=== PATIENT | male | born 1960 | race Caucasian/White ===

== ENCOUNTER 2019-07-09 14:20 | Emergency (ER) | payer OTHER ==
[~2019-07-09] VITALS: Ht 175.3 cm; Wt 145.2 kg
[~2019-07-09 14:20] MED LIST: ADVAIR; AMLODIPINE-BEN1 EAC3 PO; AVELOX 400 MG400 MG PO; Advair Hfa PO; CEFDINIR300 MG; COLACE100 MG PO; DEEP SEA NASAL44 M1 IH; FOLIC ACID1 MG PO; HUMIRA20 MG/0.4; HYDROXYCHLOROQ200 M1 PO; IRON325 PO; METHOTREXATE; MUCINEX TA600 MG/TA1 PO; PREDNISONE; PREDNISONE 20 M20 M1 PO; RHEUMATREX PO; SENNA PO; SIMVASTATIN40 MG PO; SINGULAIR 10 MG10 M1 PO; XOLAIR150 MG SUBQ; ZOCOR 20 MG TAB20 M1; orencia
[2019-07-09] MEDS ORDERED: PREDNISONE 10 M10 M1 PO (16:23)
[2019-07-09] MEDS ORDERED: CYCLOBENZAPRINE5 MG PO (16:24)
[2019-07-09] MEDS ORDERED: NORCO 10-325 T1 EACH PO (16:24)
[2019-07-09 16:53] VITALS: BP 140/65
[2019-07-12] MEDS ORDERED: ADVAIR HFA 230M12 GM INH (15:52)
[2019-07-12] MEDS ORDERED: METHOTREXATE 22.5 MG PO (15:56)
[2019-07-12] MEDS ORDERED: PREDNISONE 10 M10 MG PO (15:59)
[2019-07-12] MEDS ORDERED: NORCO 10-325 T1 EACH PO (16:01)
[2019-07-12] MEDS ORDERED: CYCLOBENZAPRINE5 MG PO (16:01)
[2019-07-12] MEDS ORDERED: ORENCIA 25250 MG/VIA IV (16:03)
[2019-07-12] MEDS ORDERED: PROAIR HFA8.5 GM INH (16:05)
== END 2019-07-09 16:53 | disposition home or self-care (01) ==
LOC: ER 14:20
DX: M51.26 Other intervertebral disc displacement, lumbar region (principal); I10 Essential (primary) hypertension; J44.9 Chronic obstructive pulmonary disease, unspecified; E78.5 Hyperlipidemia, unspecified; M06.9 Rheumatoid arthritis, unspecified; Z88.8 Allergy status to other drugs, medicaments and biological substances; Z88.6 Allergy status to analgesic agent; Z88.0 Allergy status to penicillin

== ENCOUNTER → 2019-07-19 | Day surgery (SDC) | payer OTHER ==
[~2019-07-19] VITALS: Ht 172.7 cm; Wt 147.4 kg
[~2019-07-19] MED LIST changes: +ADVAIR HFA 230M12 GM INH; +CYCLOBENZAPRINE5 MG PO; +FLEXERIL PO; +METHOTREXATE 22.5 MG PO; +NORCO 10-325 T1 EACH PO; +ORENCIA 25250 MG/VIA IV; +PERCOCET PO; +PREDNISONE 10 M10 M1 PO; +PREDNISONE 10 M10 MG PO; +PROAIR HFA8.5 GM INH
[2019-07-19 10:36] LABS: HEMATOCRIT 51.6 % (42.0-52.0); HEMOGLOBIN 17.8 gm/dL (14.0-18.0)
[2019-07-19 10:45] LABS: CALCIUM 10.2 mg/dL (8.5-10.1); CREATININE 1.2 mg/dL (0.7-1.3); POTASSIUM 4.2 mmol/L (3.5-5.1)
[2019-07-19 11:05] VITALS: BP 170/99
[2019-07-19 13:45] VITALS: BP 170/99
--- NOTE | 2019-07-19 16:01 | EKG ---
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: DOV : 1960 Requested By: Joo Jay Order Number: [id number] MD: Philip Julien Measurements Intervals Morven Rate: 98 P: 31 IN: 150 QRS: -63 QRSD: 98 T: 60 QT: 345 QTc: 441 Interpretive Statements Sinus rhythm Probable left atrial enlargement Left anterior fascicular block Borderline low voltage, extremity leads Abnormal R-wave progression, late transition No previous ECG available for comparison Electronically Signed On 07-19-2019 16:01:14 CDT by Philip Julien [email or web address] ��������������������������������������������� <ELECTRONICALLY SIGNED> ���������������������������������������� By: Philip Julien MD ��������������������������������������������� 07/19/19 1601 1038 1038 Philip Julien MD /EPI
--- NOTE | 2019-07-21 12:49 | O ---
[facility] [place] [address] [place] [address] OPERATIVE REPORT Name: NGUYEN HUTCHINSON Room #: REG [facility].#: [id number] Admission: 07/19/19 ������������������ Attend Phys: Joo Jay MD Discharge: ������������������ Date of : 60 Report #: [id number] THIS REPORT FOR: //name// CC: Melquiades Rucker DATE OF SERVICE: 07/19/2019 PREOPERATIVE DIAGNOSES: Large lipoma, midline, measuring 10-12 cm; a 3 cm lipoma in the right lateral chest and another 3 cm lipoma, right hip area. POSTOPERATIVE DIAGNOSES: Large lipoma, midline, measuring 10-12 cm; a 3 cm lipoma in the right lateral chest and another 3 cm lipoma, right hip area. PROCEDURE PERFORMED: Excision of lipoma as described above. COMPLICATIONS: None. ESTIMATED BLOOD LOSS: 10 mL. SURGEON: Joo Jay MD. ANESTHESIA: IV sedation, local 0.25% Marcaine. PROCEDURE NOTE: With the patient under IV sedation, the back and the lipoma of the chest and right hip area was prepped and draped in sterile fashion. The patient is in the left side down position laterally. Timeout was performed. Preoperative IV antibiotic was administered. A 0.25% Marcaine was used to anesthetize the skin and subcutaneous tissue. The large lipoma was excised with about a 10 cm incision. After incising through the skin and subcutaneous tissue, the subcutaneous fat was normal under the skin. After opening the superficial fascia, a large lipoma was found. The lipoma was quite spherical, measuring about 12 cm. This was also quite heavy. After dissecting the lipoma free from the overlying fascia, this lipoma was actually able to be dissected all pretty well bluntly. The edges were cauterized. There was a pretty good size space left. This was pretty well right in the midline and pressing on both lateral paraspinal muscles. Hemostasis obtained with cautery. This was then packed with gauze. The two smaller lipomas were then dissected free without difficulty. Each contained a distinct lipoma measuring about 3 cm in diameter. The subcutaneous tissue was closed with 4-0 PDS. Skin was closed with 5-0 PDS on the small lipoma side. A #15 Gene drain was brought out through the large space where the large lipoma was placed in the space where the large lipoma was removed from. This was brought out laterally on the right side. The drain was sutured with 2-0 silk. Irrigation was performed. Hemostasis obtained. Subcutaneous tissue was closed with 3-0 PDS. Skin was closed with 4-[address] [address] OPERATIVE REPORT Name: NGUYEN HUTCHINSON Amaya Room #: REG [facility]#: [id number] Admission: 07/19/19 ������������������ Attend Phys: Joo Jay MD Discharge: ������������������ Date of : 60 Report #: [id number] running subcuticular fashion. Dermabond was applied to all the incisions, 4 x 4, OpSite used for dressing. The patient tolerated the procedure well. ��������������������������������������������� <ELECTRONICALLY SIGNED> ���������������������������������������� By: Joo Jay MD ��������������������������������������������� 07/21/19 1249 19 48 Joo Jay MD /nt
--- NOTE | 2019-07-21 17:06 | PATH ---
[facility] [place] [address] PATHOLOGY RPT PROCEDURE Name: NGUYEN MONTES DE OCA Room #: REG [facility].#: [id number] ������������������ Admission: 07/19/19 ������������������ Date of : 60 Discharge: Report #: [id number] Path Case #: [id number] [facility] Accession Number: [id number] . 01 Material submitted: . PART A: back - MID BACK LIPOMA. Modifiers: mid PART B: flank - RIGHT UPPER FLANK LIPOMA. Modifiers: right, upper PART C: hip - RIGHT HIP LIPOMA. Modifiers: right . 01 Clinical history: . Lipoma . 02 Diagnosis: A. Mature adipose tissue, mid back lipoma, excision: - Compatible with a lipoma associated with fat necrosis and dystrophic calcifications. . B. Mature adipose tissue, right upper flank lipoma, resection: - Compatible with a lipoma. . C. Mature adipose tissue, right hip lipoma, excision: - Compatible with a lipoma. (IUV:pit; 07/21/2019) QTP/07/21/2019 . 02 Electronically signed: . Hina Alcantar MD, Pathologist NPI- [id number] . 01 Gross description: . A. The specimen is received in formalin, labeled "Nguyen Montes De Oca, middle back lipoma". Received is a segment of yellow-huang lobulated tissue measuring 10.4 x 9.8 x 6.8 cm in greatest dimensions. Sectioning reveals bright yellow, lobulated cut surfaces throughout with a focus of pale huang lobulated tissue measuring 1.2 cm in maximum dimensions. The specimen is submitted representatively in cassette A1 and A2, with the entire pale huang areas submitted in cassette A1. . B. The specimen is received in formalin, labeled "Nguyen Montes De Oca, right upper flank lipoma". Received is a segment of yellow-huang lobulated tissue measuring 4.6 x 3.6 x 1.9 cm in greatest dimensions. Sectioning reveals bright yellow cut surfaces with no grossly distinct nodules or lesions. The specimen is submitted representatively in cassette B1. . C. The specimen is received in formalin, labeled "Nguyen Montes De Oca, right hip lipoma". Received are multiple segments of yellow-huang lobulated tissue measuring 6.1 x 5.3 x 2.6 cm in aggregate dimensions. Sectioning [address] [address] PATHOLOGY RPT PROCEDURE Name: NGUYEN MONTES DE OCA Room #: REG [facility] [place] M..#: [id number] ������������������ Admission: 07/19/19 ������������������ Date of : 60 Discharge: Report #: [id number] Path Case #: [id number] reveals bright yellow cut surfaces with no grossly distinct nodules or lesions. The specimen is submitted representatively in cassette C1. (CAA; 07/20/2019) QAC/QAC . 02 Pathologist provided ICD-10: D17.1, D17.23 . 02 CPT . 094026, 806588, 805207 Specimen Comment: A courtesy copy of this report has been sent to Specimen Comment: [phone], . Specimen Comment: Report sent to / DR GONZALES Performed at: 01 [facility] [address] [facility] [address], [place] [id number] MD Nils Valdez MD Phone: [phone] Performed at: [address] [id number] MD Hina Alcantar MD Phone: [phone]
== END | disposition home or self-care (01) ==
LOC: OR
PROVIDERS: Surgery
DX: D17.1 Benign lipomatous neoplasm of skin and subcutaneous tissue of trunk (principal); D17.23 Benign lipomatous neoplasm of skin and subcutaneous tissue of right leg; I10 Essential (primary) hypertension; J45.909 Unspecified asthma, uncomplicated; G47.30 Sleep apnea, unspecified; M06.9 Rheumatoid arthritis, unspecified; Z98.890 Other specified postprocedural states; Z87.891 Personal history of nicotine dependence; Z79.899 Other long term (current) drug therapy; Z88.0 Allergy status to penicillin; Z88.8 Allergy status to other drugs, medicaments and biological substances
CPT/HCPCS: 50010; 50101; 50331; 50386; 50417; 54118; 56524; 56525; 56526; 56527; 62110; 62850; 70005

== ENCOUNTER → 2019-08-16 | Outpatient (CLI) | payer OTHER ==
[~2019-08-16] VITALS: Ht 175.3 cm; Wt 142.0 kg
[~2019-08-16] MED LIST changes: +NABUMETONE 500500 M1 PO; +NEURONTIN 300300 M1 PO
[2019-08-16 14:10] VITALS: BP 183/98
--- NOTE | 2019-08-16 14:28 | NUR ---
Pain Clinic Assessment: 1. History of Osteoarthritis: Right Upper Extremity Left Upper Extremity History of Rheumatoid Arthritis: * GENERALIZED 2. Height: 5 ft. 9 in. 175.3 cm. Weight: 313.0 lb. oz. 141.976 kg. Patient's BMI: 46.2 3. Vital Signs: BP: 183/98 Pulse: 87 Resp: 16 Temp: 02 Sat: 99 ECG Mon: 4. Pain Intensity: 8 5. Fall Risk: Dizziness: N Needs help standing or walking: N Fallen in the last 3 months: N Fall risk comments: 6. Patient on Blood Thinner: None 7. History of Hypertension: Y 8. Opioid Therapy greater than 6 weeks: N Opiate Contract Signed: 9. Risk Assessment Tool Provided: LOW RISK 10. Functional Assessment Tool: 11. Recreational Drug Use: Never Drug Type: Tobacco Use: Never Smoker Tobacco Type: Amount or Packs/day: How Many Years: Alcohol Use: No Frequency: Quant:
--- NOTE | 2019-08-23 07:46 | HPC ---
[facility] [place] [address] [place] [address] PAIN MANAGEMENT CONSULTATION Name: NGUYEN HUTCHINSON Room #: REG [facility]uy#: [id number] Admission: 08/16/19 Attend Phys: Melquiades Barrios DO Discharge: Date of : 60 Report #: [id number] THIS REPORT FOR: //name// CC: Fatmata Barrios DATE OF SERVICE: 08/16/2019 REFERRING PROVIDER: TATIANA Conley CHIEF COMPLAINT: Low back pain, left lower extremity pain with paresthesias. HISTORY OF PRESENT ILLNESS: As you know, the patient is a very pleasant 59-year-old male referred to our service by his primary care team for evaluation for suspected lumbar radiculopathy. The patient indicates the pain began in May 2019 and has progressively worsened. The patient reports that he has had epidural injections in the past done at [facility] in [place] with good efficacy. He denies any new injury or trauma that may have led to symptom reoccurrence. He has undergone recent MRI of the lumbar spine dated 08/05/2019 which shows changes significant enough that the patient was referred to our clinic to discuss options for treatment. He has trialed conservative treatment management, but this has not improved overall pain. The patient indicates today pain is steady; describes the pain as aching, numbness and tingling. Places current pain score at 8/10, daily average at 8/10, worst pain has been is 10/10. The patient states that bending forward, getting up out of a seated position or sitting down from a standing position exacerbates symptoms. Repositioning tends to improve pain. He has been referred to our service to discuss treatment options for suspected lumbar radiculopathy. PAST MEDICAL HISTORY: 1. Rheumatoid arthritis. 2. Intrinsic lung disease. 3. Iron deficiency. 4. Hypertension. 5. Morbid obesity. PAST SURGICAL HISTORY: None. SOCIAL HISTORY: The patient denies tobacco, alcohol, IV or illicit drug use. He is working at [employer]. He has been out of the workforce for nearly 30 days due to ongoing back pain and left lower extremity symptoms. He reports he is not in litigation in regards to pain, but does state he is looking into possible disability benefits. He is unaccompanied at today's visit. [address] [address] PAIN MANAGEMENT CONSULTATION Name: NGUYEN HUTCHINSON Room #: REG [facility]#: [id number] Admission: 08/16/19 Attend Phys: Melquiades Barrios DO Discharge: Date of : 60 Report #: [id number] REVIEW OF SYSTEMS: Positive only for low back pain, left lower extremity pain with paresthesias. All other review of systems negative per 12-point review of systems other than those listed in history of present illness. Pain impact score 22/60 indicating mild interference of daily activities secondary to pain. ALLERGIES: NAPROXEN, PENICILLIN, OXYCODONE, ASPIRIN, GABAPENTIN, CYCLOBENZAPRINE, DIPHENHYDRAMINE. CURRENT MEDICATIONS: Amlodipine/benazepril 5/20 one tab per day, Plaquenil 200 mg 2 tabs p.o. q.a.m., ferrous sulfate 325 mg per day, Xolair 150 mg subcutaneous per week, Advair 230/21 inhaled twice a day, methotrexate 25 mg once a week, Orencia 250 mg intravenous per month. IMAGING: MRI of lumbar spine obtained on 08/05/2019. L1-L2 unremarkable. L2-L3 shows diffuse disk bulge, dnlo-ra-ziaycsik facet and ligamentum flavum hypertrophy. Mild central canal and lateral recess narrowing. There is moderate left neuroforaminal narrowing, thecal sac measuring 9 mm. L3-L4, diffuse disk bulge, lateral annular tear, facet and ligamentum flavum hypertrophy, mild central canal stenosis, measurement of thecal sac 9 mm. L4-L5, diffuse disk bulge, central annular fissure, protrusion measuring 1.5 cm at its base and 0.3 cm in height, minimal facet arthropathy. No central canal or neuroforaminal stenosis. L5-S1, diffuse disk bulge, facet hypertrophy. No central canal or neuroforaminal stenosis, bilateral L5 pars interarticularis fractures. PHYSICAL EXAMINATION: VITAL SIGNS: Blood pressure 183/98, pulse 87, respiratory rate 16 and unlabored. The patient is 99% on room air. Height 5 feet 9 inches tall, weight 313 pounds, BMI calculated 46.2. GENERAL: Well-developed, well-nourished, well-hydrated, class 3, morbidly obese 59-year-old male appearing stated age, pain is rated around 8/10. HEENT: Normocephalic, atraumatic. Pupils equal, round, reactive to light. Extraocular muscles are intact. Sclerae nonicteric without injection. NEUROLOGIC: Cranial nerves 2-12 grossly intact. Speech is fluent. The patient deemed a good historian. LUNGS: Clear. No wheezes, rhonchi, no rales. CARDIOVASCULAR: Regular. No appreciable gallop, no rub. ABDOMEN: Soft, morbidly obese. Normoactive bowel sounds. EXTREMITIES: Show no clubbing, no cyanosis, 1+ nonpitting lower extremity edema noted bilaterally. MUSCULOSKELETAL: Lower extremity strength equal and symmetrical 5/5, intact to light touch from L1 through S2 dermatomes. Seated straight leg raising negative. Supine straight leg raising positive on the left. Aki's test is [facility] [address] [place] [address] PAIN MANAGEMENT CONSULTATION Name: NGUYEN HUTCHINSON Room #: REG [facility]#: [id number] Admission: 08/16/19 Attend Phys: Melquiades Barrios DO Discharge: Date of : 60 Report #: [id number]. Modified Gaenslen's positive for axial low back pain. Ankle clonus negative. Babinski's is negative. Lumbar provocation testing including extension, rotation, lateral flexion all intensify axial back pain, no radicular component. ASSESSMENT: 1. Chronic lumbar radiculopathy. 2. Displacement of lumbar intervertebral disk with radiculopathy. 3. Lumbosacral spondylosis with radiculopathy. 4. Lumbar degeneration. 5. Chronic intractable pain. PLAN: 1. Based on today's physical exam and history the patient has provided, the description the patient uses in regards to pain as well as location of symptoms with radiation down the left leg, the likely source of the patient's pain is lumbar radiculopathy. We discussed with the patient treatment options for lumbar radicular symptoms today. The following was discussed with the patient in response to treatment options based on the findings of his MRI and the findings on physical examination: We did spend over 18 minutes of time reviewing the patient's MRI in its entirety so he has a full understanding of the findings therein. We discussed physical therapy, stretching exercises and core strengthening as well as concerted effort at weight loss to address ongoing back pain issues. We discussed medication management utilizing a nonsteroidal anti-inflammatory and the possible addition of a neuropathic pain medication. We discussed lumbar epidural injection under fluoroscopic guidance and ultimately surgical options. After reviewing the risks and benefits of all proposed treatment options, the patient chose to move forward with a lumbar epidural injection under fluoroscopic guidance. 2. The patient was advised that due to third republican payer restrictions, authorization has to be obtained before the patient could undergo a lumbar epidural injection. We will begin this authorization process immediately. Once this has been completed, we will have the patient return to undergo first in a series of lumbar epidural injections. Authorization process could take anywhere from 4-7 working days. We will initiate this process. He can contact our clinic for progress. 3. We will start the patient on nabumetone 500 mg dose 1 tab p.o. t.i.d. with meals. I have advised the patient to watch for side effects of dyspepsia, worsening of blood pressure, lower extremity edema. If he notes any of the side effects, discontinue immediately and call for further instructions. This should help with his axial back pain as we await approval for the epidural injection. 4. We have made the patient a tentative appointment back next week on Thursday to undergo lumbar epidural injection. We are hopeful we will have the authorization for the patient to undergo the procedure at that date. If this is [address] [address] PAIN MANAGEMENT CONSULTATION Name: NGUYEN HUTCHINSON Room #: REG [facility]#: [id number] Admission: 08/16/19 Attend Phys: Melquiades Barrios DO Discharge: Date of : 60 Report #: [id number] not the case, we will adjust his timing for that authorization. 5. We wish to thank Nurse Practitioner Fatmata Scales for the referral of this patient to our clinic. We will keep you apprised of his response to treatment as we address suspected lumbar radiculopathy. Again, we wish to thank you for the opportunity to see this patient in consultation. <ELECTRONICALLY SIGNED> By: Melquiades Barrios DO 08/23/19 0746 1546 0817 Melquiades Barrios DO /nt
== END ==
LOC: PAIN 06:53
DX: M47.27 Other spondylosis with radiculopathy, lumbosacral region (principal); M79.662 Pain in left lower leg; I10 Essential (primary) hypertension; M06.9 Rheumatoid arthritis, unspecified; M51.16 Intervertebral disc disorders with radiculopathy, lumbar region; G89.4 Chronic pain syndrome; Z88.8 Allergy status to other drugs, medicaments and biological substances; Z79.899 Other long term (current) drug therapy

== ENCOUNTER → 2019-08-24 | Outpatient (CLI) | payer OTHER ==
[~2019-08-24] VITALS: Ht 175.3 cm; Wt 141.5 kg
[2019-08-24 09:17] VITALS: BP 166/83
--- NOTE | 2019-08-24 09:19 | NUR ---
Pain Clinic Assessment: 1. History of Osteoarthritis: Right Upper Extremity Left Upper Extremity History of Rheumatoid Arthritis: GENERALIZED 2. Height: 5 ft. 9 in. 175.3 cm. Weight: 312.0 lb. oz. 141.523 kg. Patient's BMI: 46.1 3. Vital Signs: BP: 166/83 Pulse: 62 Resp: 16 Temp: 02 Sat: 96 ECG Mon: 4. Pain Intensity: 6 5. Fall Risk: Dizziness: N Needs help standing or walking: N Fallen in the last 3 months: N Fall risk comments: 6. Patient on Blood Thinner: None 7. History of Hypertension: Y 8. Opioid Therapy greater than 6 weeks: N Opiate Contract Signed: 9. Risk Assessment Tool Provided: LOW RISK-0 10. Functional Assessment Tool: 11. Recreational Drug Use: Never Drug Type: Tobacco Use: Never Smoker Tobacco Type: Amount or Packs/day: How Many Years: Alcohol Use: No Frequency: Quant:
--- NOTE | 2019-09-06 07:57 | HPC ---
[facility] [place] [address] PAIN MANAGEMENT CONSULTATION Name: NGUYEN HUTCHINSON Room #: REG [facility] [id number] Admission: 08/24/19 Attend Phys: Melquiades Barrios DO Discharge: Date of : 60 Report #: [id number] THIS REPORT FOR: //name// CC: Fatmata Briones DATE OF SERVICE: 08/24/2019 CHIEF COMPLAINT: Low back pain, left lower extremity pain with paresthesias. HISTORY OF PRESENT ILLNESS: As you know, the patient is a very pleasant 59-year-old male referred to our service by his primary care team for suspected lumbar radiculopathy. The patient was seen on 08/16/2019, diagnosed with lumbar radiculopathy secondary to the displacement of lumbar intervertebral disk and lumbosacral spondylosis, combining to cause lumbar radicular pain. He was seen in consultation advised of the different treatment options. He chose to undergo a lumbar epidural injection. Due to third green party payer restrictions, authorization had to be obtained. We have obtained this authorization. He returns today to undergo first in a series of epidural injections. He is placing pain today at around 6/10. The patient has had no changes in medical history since our last visit and no changes in medication management. ALLERGIES: NAPROXEN, PENICILLIN, OXYCODONE, ASPIRIN, GABAPENTIN, CYCLOBENZAPRINE, DIPHENHYDRAMINE. CURRENT MEDICATIONS: Amlodipine, benazepril, Plaquenil, ferrous sulfate, Xolair, Advair, methotrexate, Orencia. SOCIAL HISTORY: The patient denies tobacco, alcohol, IV or illicit drug use. He is working, not receiving workmen's compensation, unaccompanied today. IMAGING: No new imaging available. PHYSICAL EXAMINATION: VITAL SIGNS: Blood pressure 166/83, pulse 62, respiratory rate 16 and unlabored. The patient is 96% on room air. Height 5 feet 9 inches tall, weight 312 pounds, BMI calculated 46.1. GENERAL: Well-developed, well-nourished, well-hydrated, class 3, morbidly obese 59-year-old male appearing stated age, pain is rated around 6/10. HEENT: Normocephalic, atraumatic. Pupils equal, round, reactive to light. EXTREMITIES: Show no clubbing, no cyanosis, and no edema. MUSCULOSKELETAL: Lower extremity strength equal and symmetrical 5/5, intact to light touch from L1 through S2 dermatomes. Ankle clonus negative. Babinski is negative. Seated straight leg raising negative[place] [address] PAIN MANAGEMENT CONSULTATION Name: NGUYEN HUTCHINSON Room #: REG ELISA Daley#: [id number] Admission: 08/24/19 Attend Phys: Melquiades Barrios DO Discharge: Date of : 60 Report #: [id number] positive on the left. Aki's test negative. Modified Gaenslen's remains positive for axial back pain. ASSESSMENT: 1. Symptomatic lumbar radiculopathy. 2. Displacement of lumbar intervertebral disk with radiculopathy. 3. Lumbosacral spondylosis with radiculopathy. 4. Lumbar degeneration. 5. Chronic intractable pain. PLAN: 1. The patient has returned today in followup visit having received preauthorization to undergo lumbar epidural injection under fluoroscopic guidance. The patient denies any new injury or trauma that may have led to continuation of pain. He has been advised risks and benefits of a lumbar epidural injection. These include but are not necessarily limited to bleeding, bruising, infection, worsening pain, no relief of pain, also risk of temporary or permanent muscle weakness, temporary or permanent nerve damage, possible paralysis, post-dural puncture headache and . The patient states understood and wished to proceed. 2. No medication changes made at today's visit. The patient will continue current medical therapy as prior prescribed. 3. We will see the patient back in followup visit in approximately 30 days. At that time, review efficacy of today's epidural injection and determine if next in the series of epidural injections would be recommended. PROCEDURE NOTE DESCRIPTION OF PROCEDURE: L5-S1 left parasagittal epidural steroid injection under fluoroscopic guidance. This is the first procedure of the first series that the patient is undergoing. After obtaining written consent, the patient was taken back to the fluoroscopy suite, placed in a prone position with pillow under the abdomen to decrease lumbar lordosis. The skin overlying the lumbosacral area was then prepped and draped in aseptic fashion. The L5-S1 vertebral interspace was then identified by AP fluoroscopy. The skin and subcutaneous tissue overlying the target site of injection was anesthetized with 3 mL 1% lidocaine. A 20-gauge 4-1/2 inch Tuohy needle was then advanced under fluoroscopic guidance towards the epidural space using a left parasagittal approach. The epidural space was identified using loss of resistance to air technique. After negative aspiration for heme or cerebrospinal fluid, a total of 1 mL of Omnipaque was injected. A lumbar epidurogram was confirmed using both AP and lateral fluoroscopy. After negative aspiration for heme or cerebrospinal fluid, 5 mL of [address] [address] PAIN MANAGEMENT CONSULTATION Name: NGUYEN HUTCHINSON Room #: [facility]#: [id number] Admission: 08/24/19 Attend Phys: Melquiades Barrios DO Discharge: Date of : 60 Report #: [id number] solution containing 2 mL 40 mg per mL, 80 mg total triamcinolone along with 3 mL lidocaine 1% was injected in increments. Contrast spread was noted post-epidural space. The needle was then retracted approximately half way and needle tract flushed with 1 mL of 1% lidocaine. Needle was then removed. There were no apparent sensory or motor deficits in the lower extremity following the procedure. A sterile bandage was placed over the injection site. The heart rate, pulse, oximetry and blood pressure were continuously monitored after the procedure. There were no apparent complications. The patient tolerated the procedure well and was carefully escorted to the recovery room in stable condition. There were no apparent complications. After meeting discharge criteria, the patient was then discharged home. <ELECTRONICALLY SIGNED> By: Melquiades Barrios DO 09/06/19 0757 [id number] Melquiades Barrios DO /nt
== END | disposition home or self-care (01) ==
LOC: PAIN 06:59
DX: M54.5 Low back pain (principal); G89.29 Other chronic pain; M51.16 Intervertebral disc disorders with radiculopathy, lumbar region; M47.27 Other spondylosis with radiculopathy, lumbosacral region; Z98.890 Other specified postprocedural states; Z88.2 Allergy status to sulfonamides; Z79.891 Long term (current) use of opiate analgesic; Z79.899 Other long term (current) drug therapy; Z79.82 Long term (current) use of aspirin; Z88.0 Allergy status to penicillin; Z88.8 Allergy status to other drugs, medicaments and biological substances

== ENCOUNTER → 2019-10-04 | Outpatient (CLI) | payer OTHER ==
[~2019-10-04] VITALS: Ht 175.3 cm; Wt 139.9 kg
[2019-10-04 09:44] VITALS: BP 127/76
--- NOTE | 2019-10-04 10:00 | NUR ---
Pain Clinic Assessment: 1. History of Osteoarthritis: Right Upper Extremity Left Upper Extremity History of Rheumatoid Arthritis: GENERALIZED UNDER TREATMENT. 2. Height: 5 ft. 9 in. 175.3 cm. Weight: 308.4 lb. oz. 139.890 kg. Patient's BMI: 45.5 3. Vital Signs: BP: 127/76 Pulse: 82 Resp: 18 Temp: 02 Sat: 100 ECG Mon: 4. Pain Intensity: 8 5. Fall Risk: Dizziness: N Needs help standing or walking: N Fallen in the last 3 months: N Fall risk comments: 6. Patient on Blood Thinner: None 7. History of Hypertension: Y 8. Opioid Therapy greater than 6 weeks: N Opiate Contract Signed: 9. Risk Assessment Tool Provided: LOW RISK-0 10. Functional Assessment Tool: 11. Recreational Drug Use: Never Drug Type: Tobacco Use: Never Smoker Tobacco Type: Amount or Packs/day: How Many Years: Alcohol Use: No Frequency: Quant:
--- NOTE | 2019-10-11 16:27 | HPC ---
[facility] [place] [address] PAIN MANAGEMENT CONSULTATION Name: NGUYEN HUTCHINSON Room #: REG ELISA IzquierdoVivekBoVivek#: [id number] Admission: 10/04/19 Attend Phys: Melquiades Barrios DO Discharge: Date of : 60 Report #: [id number] THIS REPORT FOR: //name// CC: Fatmata Briones DATE OF SERVICE: 10/04/2019 REFERRING PROVIDER: TATIANA Conley BEAD PREPARER: Dr. Nixon. CHIEF COMPLAINT: Low back pain, left lower extremity pain with paresthesias. HISTORY OF PRESENT ILLNESS: As you know, the patient is a very pleasant 59-year-old male referred to our service for suspected lumbar radiculopathy. He was seen in consultation 08/16/2019, diagnosed with lumbar radiculopathy secondary to displacement of a lumbar intervertebral disks that in conjunction with arthritic changes of the lumbar spine leading to his symptoms. He underwent a lumbar epidural injection under fluoroscopic guidance 08/24/2019, with some improvement in pain. He reports about 50% improvement lasting for about 2 weeks. Unfortunately, his symptoms have returned to 8/10 level. States pain begins in the low back, radiates down the left leg, began in May without inciting injury or trauma. He states pain is constant, aching, numbness and tingling when describing symptoms. He returns today to discuss options for treatment. ALLERGIES: NAPROXEN, PENICILLIN, OXYCODONE, ASPIRIN, GABAPENTIN, CYCLOBENZAPRINE, DIPHENHYDRAMINE. CURRENT MEDICATIONS: Amlodipine, benazepril, Plaquenil, ferrous sulfate, Xolair, Advair, methotrexate, Orencia. SOCIAL HISTORY: The patient denies tobacco, alcohol, IV or illicit drug use. He is working on receiving workmen's compensation, unaccompanied today. IMAGING: No new imaging available. PHYSICAL EXAMINATION: VITAL SIGNS: Blood pressure 127/76, pulse 82, respiratory rate 18 and unlabored. The patient is 100% on room air. Height 5 feet 9 inches tall, weight 308.4 pounds, BMI calculated 45.5. GENERAL: Well-developed, well-nourished, well-hydrated, class 3, morbidly obese [address] [address] PAIN MANAGEMENT CONSULTATION Name: NGUYEN HUTCHINSON [facility] #: [facility] [id number] Admission: 10/04/19 Attend Phys: Melquiades Barrios DO Discharge: Date of : 60 Report #: [id number] 59-year-old male appearing stated age. He is in no acute distress, awake, alert and oriented x 3. Current pain score is 8/10. HEENT: Normocephalic, atraumatic. Pupils equal, round, reactive to light. EXTREMITIES: Show no clubbing, no cyanosis, and no edema. MUSCULOSKELETAL: Lower extremity strength equal and symmetrical 5/5. Slight giveaway strength noted with hip flexion, knee extension on the left when compared to the right. Seated straight leg raising negative. Supine straight leg raising positive on the left. Aki's test is negative. Gait is antalgic favoring left lower extremity over right. ASSESSMENT: 1. Symptomatic lumbar radiculopathy. 2. Displacement of a lumbar intervertebral disk with radiculopathy. 3. Lumbosacral spondylosis with radiculopathy. 4. Lumbar degeneration. 5. Chronic intractable pain. PLAN: 1. The patient returns today in followup visit having noted improvement of 50% with the epidural injection provided at last visit. Unfortunately, his symptoms have returned. He is now reporting pain score at 8/10. He wishes to move forward with the preauthorization process to undergo next in the series of lumbar epidural injections. We will begin this process immediately. I did advise the patient this could take anywhere from 4-7 working days. We will begin that process today. 2. The patient will be sent for physical therapy 3 times a week for 6 weeks. I believe some weight loss and some strengthening would be quite beneficial for the patient. It is contributing significantly to his overall symptomology. He will begin the physical therapy as quickly as possible. He was given a prescription for physical therapy 3 times a week for 6 weeks with modalities on a p.r.n. basis. 3. The patient and I did discuss medication therapies. We have agreed to provide some suggestions to the referring physician and the maple syrup maker in regards to potential medication treatment course. Certainly, neuropathic pain medications could be beneficial in this patient's case. He reports an allergy to gabapentin, so this would leave us with amitriptyline starting at 25 mg dose and escalating every 7 days to as high as 125 mg p.o. at bedtime. 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 We discussed the use of duloxetine starting at 30 mg dose 1 tab p.o. at bedtime for 7 nights, then increasing to 60 mg dose for 7 nights. If no improvement in symptoms, no side effects, then continue escalating up to 120 mg total per day. We also discussed the possible use of Lyrica as a neuropathic medication. This will be started at 75 mg dose and escalating every 7 days until reaching efficacy. We also discussed other options for treatment from a medication standpoint including anti-inflammatory medications to help with his generalized pain secondary to rheumatoid arthritis. [facility] [address] [place] [address] PAIN MANAGEMENT CONSULTATION Name: NGUYEN HUTCHINSON Room #: REG [facility].#: [id number] Admission: 10/04/19 Attend Phys: Melquiades Barrios DO Discharge: Date of : 60 Report #: [id number] He was questioning whether or not opioid medications would be beneficial. We have not noted any improvement in symptoms with patients on opioids with neuropathic pain, though this could be initiated for his generalized pain disorder. This can be done by his PCP or his maple syrup maker as these are not noted to be effective for neuropathic pain. We also discussed with the patient the possibility of trialing a spinal cord stimulator and ultimately surgical options. He will consider his medication options with his PCP and maple syrup maker initially. If these are not effective, then consider more aggressive treatments. 4. We will see the patient back in followup visit once we have achieved authorization for the patient to undergo a lumbar epidural injection under fluoroscopic guidance. <ELECTRONICALLY SIGNED> By: Melquiadse Barrios DO 10/11/19 1627 [id number] 1339 Melquiades Barrios DO /nt
== END ==
LOC: PAIN 06:42
DX: M51.16 Intervertebral disc disorders with radiculopathy, lumbar region (principal); M47.27 Other spondylosis with radiculopathy, lumbosacral region; G89.29 Other chronic pain; Z88.0 Allergy status to penicillin; Z88.6 Allergy status to analgesic agent; Z88.8 Allergy status to other drugs, medicaments and biological substances; Z79.899 Other long term (current) drug therapy

== ENCOUNTER → 2019-10-18 | Outpatient (CLI) | payer OTHER ==
[~2019-10-18] VITALS: Ht 175.3 cm; Wt 140.6 kg
[2019-10-18 08:40] VITALS: BP 149/82
--- NOTE | 2019-10-18 08:49 | NUR ---
Pain Clinic Assessment: 1. History of Osteoarthritis: Right Upper Extremity Left Upper Extremity History of Rheumatoid Arthritis: GENERALIZED UNDER TREATMENT. 2. Height: 5 ft. 9 in. 175.3 cm. Weight: 310.0 lb. oz. 140.616 kg. Patient's BMI: 45.8 3. Vital Signs: BP: 149/82 Pulse: 84 Resp: 16 Temp: 02 Sat: 96 ECG Mon: 4. Pain Intensity: 8 5. Fall Risk: Dizziness: N Needs help standing or walking: N Fallen in the last 3 months: N Fall risk comments: 6. Patient on Blood Thinner: None 7. History of Hypertension: Y 8. Opioid Therapy greater than 6 weeks: N Opiate Contract Signed: 9. Risk Assessment Tool Provided: LOW RISK-0 10. Functional Assessment Tool: 11. Recreational Drug Use: Never Drug Type: Tobacco Use: Never Smoker Tobacco Type: Amount or Packs/day: How Many Years: Alcohol Use: No Frequency: Quant:
--- NOTE | 2019-10-19 12:58 | HPC ---
[facility] [address] [place] [address] PAIN MANAGEMENT CONSULTATION Name: NGUYEN HUTCHINSON Room #: REG Preet VivekVivek#: [id number] Admission: 10/18/19 Attend Phys: Melquiades Barrios DO Discharge: Date of : 60 Report #: [id number] THIS REPORT FOR: //name// CC: Fatmata Neal MD DATE OF SERVICE: 10/18/2019 REFERRING PHYSICIAN: Nurse practitioner, Fatmata Scales. CHIEF COMPLAINT: Low back pain, left lower extremity pain with paresthesias. HISTORY OF PRESENT ILLNESS: As you know, the patient is a very pleasant 59-year-old male returning in followup visit to undergo second in the series of lumbar epidural injections under fluoroscopic guidance. The patient successfully completed epidural injection after receiving preauthorization with a reported 60-70% improvement in overall pain. He returns today in followup visit to undergo next in the series of epidural injections. He states pain is constant, aching sensation, exacerbated with standing movement and activity; improves with sitting, lying down and previous epidural injection. He returns today in followup visit to undergo next in the series of epidural injections in hopes of improving pain. He requests that he follow up with his metal loader in regards to medication management as he follows with them on a monthly basis and the cost to see them is much less than the co-pays to see us. He requests that the epidural injection be provided today to control current pain. ALLERGIES: NAPROXEN, PENICILLIN, OXYCODONE, ASPIRIN, GABAPENTIN, CYCLOBENZAPRINE and DIPHENHYDRAMINE. CURRENT MEDICATIONS: See chart. SOCIAL HISTORY: The patient denies tobacco, alcohol, IV or illicit drug use. He is working, not receiving workmen's compensation. IMAGING: No new imaging available. PHYSICAL EXAMINATION: VITAL SIGNS: Blood pressure 149/82, pulse 84, respiratory rate 16 and unlabored. The patient is 96% on room air. Height 5 feet 9 inches tall, weight 310 pounds, BMI calculated 45.8. GENERAL: Well-developed, well-nourished, well-hydrated, morbidly obese 59-year-old male appearing stated age, pain is rated around 8/10. HEENT: Normocephalic, atraumatic. Pupils equal, round and reactive to light. Extraocular muscles are intact. [facility] [address] [place] [address] PAIN MANAGEMENT CONSULTATION Name: NGUYEN HUTCHINSON [facility] #[facility] [id number] Admission: 10/18/19 Attend Phys: Melquiades Barrios DO Discharge: Date of : 60 Report #: [id number] EXTREMITIES: Show no clubbing, no cyanosis, no edema. MUSCULOSKELETAL: Lower extremity strength is symmetrical 5/5. Muscle bulk and tone equal and symmetrical in comparing left lower extremity to right. Seated straight leg raising negative. Supine straight leg raising positive on the left. Aki's test negative. ASSESSMENT: 1. Symptomatic lumbar radiculopathy. 2. Displacement of lumbar intervertebral disk with radiculopathy. 3. Lumbosacral spondylosis with radiculopathy. 4. Lumbar degeneration. 5. Chronic intractable pain. PLAN: 1. The patient returns today in followup visit requesting to undergo next in the series of epidural injections under fluoroscopic guidance to build on success of previous intervention. The patient reports about a 50-60% improvement in overall pain with the initial epidural injection, returning today to undergo next in the series. He has been advised risks and benefits of procedure, states understood and wished to proceed. 2. The patient's prior evaluation, we gave suggestion for dosing of medication. The patient is to follow up with his metal loader in regards to these issues. He wishes to continue with his metal loader as he feels comfortable with their care. The suggestions are in the dictation of 10/04/2019. 3. We will see the patient back in followup visit on an as needed basis for the third and final in the series of epidural injections. PROCEDURE NOTE DESCRIPTION OF PROCEDURE: L5-S1 left parasagittal epidural steroid injection under fluoroscopic guidance. After obtaining written consent, the patient was taken back to fluoroscopy suite, placed in prone position with pillow under abdomen to decrease lumbar lordosis. Skin overlying lumbosacral area then prepped and draped in aseptic fashion. L5-S1 vertebral interspace identified by AP fluoroscopy. Skin and subcutaneous tissue overlying target site of injection was anesthetized with 3 mL of 1% lidocaine. A 20-gauge 4-1/2 inch Tuohy needle advanced under fluoroscopic guidance towards the epidural space using left parasagittal approach. Epidural space identified using loss of resistance to air technique. Due to a potential contrast allergy, no contrast agent was used in today's procedure. Needle position was confirmed using both AP and lateral fluoroscopy. After negative aspiration for heme or cerebrospinal fluid, 3 mL of a solution containing 2 mL 40 mg per mL, 80 mg total triamcinolone along with 1 mL of lidocaine 1% preservative-free was [address] [address] PAIN MANAGEMENT CONSULTATION Name: NGUYEN HUTCHINSON Room #: REG ELISA Daley#: [id number] Admission: 10/18/19 Attend Phys: Melquiades Barrios DO Discharge: Date of : 60 Report #: [id number] injected slowly. Needle retracted nursing home, flushed with 1 mL of 1% lidocaine, then removed. Sterile bandage placed over injection site. No new motor deficits present in the lower extremities following procedure. The patient tolerated procedure well, carefully escorted to recovery room in stable condition. No apparent complications. After meeting discharge criteria, the patient discharged home. <ELECTRONICALLY SIGNED> By: Melquiades Barrios DO 10/19/19 1258 1131 1206 Melquiades Barrios DO /nt
== END | disposition home or self-care (01) ==
LOC: PAIN 06:46
DX: M51.16 Intervertebral disc disorders with radiculopathy, lumbar region (principal); M47.27 Other spondylosis with radiculopathy, lumbosacral region; G89.29 Other chronic pain; Z98.890 Other specified postprocedural states; Z79.899 Other long term (current) drug therapy; Z88.0 Allergy status to penicillin; Z88.8 Allergy status to other drugs, medicaments and biological substances

== ENCOUNTER → 2020-01-24 | Outpatient (CLI) | payer OTHER ==
[~2020-01-24] VITALS: Ht 175.3 cm; Wt 136.2 kg
[~2020-01-24] MED LIST changes: +APAP650 PO; +TRAMADOL 50 MG50 MG PO
--- NOTE | ~2020-01-24 | HPC ---
[facility] [place] [address] PAIN MANAGEMENT CONSULTATION Name: NGUYEN HUTCHINSON Room #: REG ELISA MajorVivek#: [id number] Admission: 01/24/20 Attend Phys: Melquiades Barrios DO Discharge: Date of : 60 Report #: [id number] THIS REPORT FOR: cc: Melquiades Conde James A. DO Johnson, James E. DO ~ CC: Fatmata Briones DATE OF SERVICE: 01/24/2020 REFERRING PHYSICIAN: Fatmata Fernando NP CHIEF COMPLAINT: Low back pain, left lower extremity pain with paresthesias. HISTORY OF PRESENT ILLNESS: As you know, the patient is a pleasant 59-year-old male who returns today in followup visit reporting a pain score around 8/10. Despite this elevated pain score, the patient reports his previous epidural injection gave greater than 50-60% improvement in overall pain lasting for nearly a month and a half. He returns today in followup visit to discuss the possibility of undergoing the next in the series, which would be the third epidural injection to address lumbar radicular symptoms. The patient states overall he has been doing fairly well, though the pain has returned to a level of intolerability. He returns stating no new injury or trauma that may have led to symptom development. ALLERGIES: NAPROXEN, PENICILLIN, OXYCODONE, ASPIRIN, GABAPENTIN, CYCLOBENZAPRINE, DIPHENHYDRAMINE. CURRENT MEDICATIONS: Tramadol, Tylenol Extra Strength, Orencia, methotrexate, fluticasone, Solu-Medrol, Xolair, ferrous sulfate, hydroxychloroquine, folic acid, amlodipine. SOCIAL HISTORY: The patient denies tobacco, alcohol or IV illicit drug use. He is working, not receiving workmen's compensation, unaccompanied today. IMAGING: There is no new imaging available. PHYSICAL EXAMINATION: VITAL SIGNS: Blood pressure 116/68, pulse 73, respiratory rate 16 and unlabored. The patient is 98% on room air. Height 5 feet 9 inches tall, weight 302 pounds, BMI calculated 44.3. GENERAL: Well-developed, well-nourished, well-hydrated, morbidly obese 59-year-old male appearing stated age, placing current pain score at [address] [address] PAIN MANAGEMENT CONSULTATION Name: NGUYEN HUTCHINSON Room #: REG CL Thuy#: [id number] Admission: 01/24/20 Attend Phys: Melquiades Barrios DO Discharge: Date of : 60 Report #: [id number] approximately 06/25. HEENT: Normocephalic and atraumatic. Pupils are equal, round, and reactive to light. EXTREMITIES: Show no clubbing, no cyanosis, and no edema. MUSCULOSKELETAL: Muscle bulk and tone is symmetrical again today when comparing lower extremities. Seated straight leg raising negative. Supine straight leg raising positive on the left. Aki's test is negative. Gait appears mildly antalgic favoring left lower extremity to right. There is slight loss of lordotic curvature and stance. ASSESSMENT: 1. Symptomatic lumbar radiculopathy. 2. Displacement of lumbar intervertebral disk with radiculopathy. 3. Lumbosacral spondylosis with radiculopathy. 4. Lumbar degeneration. 5. Chronic intractable pain. PLAN: 1. The patient has returned today in followup visit requesting to undergo next in the series of lumbar epidural injections under fluoroscopic guidance. The patient was advised that third democrat paper restrictions will require authorization be obtained before the patient could undergo next in the series. I am pleased to see the patient has done well with previous epidural injection noticing greater than 50-60% improvement in overall symptoms lasting for nearly a month and a half. Unfortunately, his symptoms have begun to return. He returns today to begin this prior authorization process to undergo next in the series of epidural injections. The patient was advised we will begin the authorization process immediately, contact him once we have this authorization completed. 2. No medication changes made at today's visit. It was noted that the patient was started on tramadol on a p.r.n. basis. He is yet to determine whether or not this has been effective at treating symptoms. He will continue the medication as directed by the prescribing physician. 3. We will see the patient back in followup visit once we have achieved authorization for him to undergo a lumbar epidural injection. We are hopeful will have this information done quickly. By: [id number] Melquiades Barrios DO /nt
[2020-01-24 10:17] VITALS: BP 116/68
--- NOTE | 2020-01-24 10:37 | NUR ---
Pain Clinic Assessment: 1. History of Osteoarthritis: Right Upper Extremity Left Upper Extremity History of Rheumatoid Arthritis: GENERALIZED UNDER TREATMENT. 2. Height: 5 ft. 9 in. 175.3 cm. Weight: 300.2 lb. oz. 136.170 kg. Patient's BMI: 44.3 3. Vital Signs: BP: 116/68 Pulse: 73 Resp: 16 Temp: 02 Sat: 98 ECG Mon: 4. Pain Intensity: 8 5. Fall Risk: Dizziness: N Needs help standing or walking: N Fallen in the last 3 months: N Fall risk comments: 6. Patient on Blood Thinner: None 7. History of Hypertension: Y 8. Opioid Therapy greater than 6 weeks: N Opiate Contract Signed: 9. Risk Assessment Tool Provided: LOW RISK-0 10. Functional Assessment Tool: 11. Recreational Drug Use: Never Drug Type: Tobacco Use: Never Smoker Tobacco Type: Amount or Packs/day: How Many Years: Alcohol Use: No Frequency: Quant:
== END ==
LOC: PAIN 06:46
DX: M51.16 Intervertebral disc disorders with radiculopathy, lumbar region (principal); M47.27 Other spondylosis with radiculopathy, lumbosacral region; G89.29 Other chronic pain; M79.605 Pain in left leg; Z88.0 Allergy status to penicillin; Z88.8 Allergy status to other drugs, medicaments and biological substances; Z88.1 Allergy status to other antibiotic agents; Z79.899 Other long term (current) drug therapy

== ENCOUNTER → 2020-07-24 | Outpatient (CLI) | payer OTHER ==
[~2020-07-24] VITALS: Ht 175.3 cm; Wt 140.6 kg
[~2020-07-24] MED LIST changes: +HYDROCODON-ACE1 EAC7 PO
[2020-07-24 08:35] VITALS: BP 145/83
--- NOTE | 2020-07-24 08:45 | NUR ---
Pain Clinic Assessment: 1. History of Osteoarthritis: Right Upper Extremity Left Upper Extremity History of Rheumatoid Arthritis: GENERALIZED UNDER TREATMENT. 2. Height: 5 ft. 9 in. 175.3 cm. Weight: 310.0 lb. oz. 140.616 kg. Patient's BMI: 45.8 3. Vital Signs: BP: 145/83 Pulse: 66 Resp: 16 Temp: 02 Sat: 99 ECG Mon: 4. Pain Intensity: 8 5. Fall Risk: Dizziness: N Needs help standing or walking: N Fallen in the last 3 months: N Fall risk comments: 6. Patient on Blood Thinner: None 7. History of Hypertension: Y 8. Opioid Therapy greater than 6 weeks: N Opiate Contract Signed: 9. Risk Assessment Tool Provided: LOW RISK-0 10. Functional Assessment Tool: 11. Recreational Drug Use: Never Drug Type: Tobacco Use: Never Smoker Tobacco Type: Amount or Packs/day: How Many Years: Alcohol Use: No Frequency: Quant:
--- NOTE | 2020-07-24 12:53 | HPC ---
[facility] [address] [address] PAIN MANAGEMENT CONSULTATION Name: NGUYEN HUTCHINSON Room #: REG ELISA MajorVivek#: [id number] Admission: 07/24/20 Attend Phys: Melquiades Barrios DO Discharge: Date of : 60 Report #: [id number] THIS REPORT FOR: cc: Melquiades Conde James A. DO Johnson, James E. DO ~ DATE OF SERVICE: 07/24/2020 REFERRING PHYSICIAN: TATIANA Conley CHIEF COMPLAINT: Low back pain, left lower extremity pain with paresthesias. HISTORY OF PRESENT ILLNESS: As you know, the patient is a pleasant 60-year-old morbidly obese male with longstanding history of lumbar radiculopathy involving low back and left lower extremity. The patient states his pain began 05/2019 without inciting injury or trauma. He has undergone epidural injections under fluoroscopic guidance with good efficacy; the most recent providing up to 50% improvement in overall pain. Unfortunately, his symptoms have begun to return. He takes Extra Strength Tylenol and tramadol for pain control, though this is providing minimal benefit. He returns today to discuss the next in the series of epidural injections in hopes of building on success of previous intervention. The patient denies new injury, trauma or any changes in medical history since our last visit. ALLERGIES: NAPROXEN, PENICILLIN, OXYCODONE, ASPIRIN, GABAPENTIN, CYCLOBENZAPRINE, DIPHENHYDRAMINE. CURRENT MEDICATIONS: Tramadol 50 mg every 6 hours p.r.n. for pain, Tylenol Extra Strength 2 tabs 3 times a day, Orencia 250 mg intramuscular once a month, methotrexate 10 mg per week, Advair Diskus 230/21 mcg 2 puffs b.i.d., Xolair 150 mg subcutaneous per week, ferrous sulfate 325 mg per day, Plaquenil 200 mg 2 tabs once a day, folic acid 1 mg twice a day, amlodipine/benazepril 5/20 once a day. SOCIAL HISTORY: The patient denies tobacco, alcohol, IV or illicit drug use. He is working, not receiving workmen's compensation, unaccompanied today. IMAGING: No new imaging available. PHYSICAL EXAMINATION: VITAL SIGNS: Blood pressure 145/83, pulse 66, respiratory rate 16 and unlabored, the patient is 99% on room air. Height 5 feet 9 inches tall, weight 310 pounds, BMI calculated 45.8. GENERAL: Well-developed, well-nourished, well-hydrated, class 3, morbidly obese 60-year-old male appearing stated age, pain is rated today at 8/10. [place] [address] PAIN MANAGEMENT CONSULTATION Name: NGUYEN HUTCHINSON Room #: REG CL Felecia.Bo.#: [id number] Admission: 07/24/20 Attend Phys: Melquiades Bariros DO Discharge: Date of : 60 Report #: [id number] HEENT: Normocephalic, atraumatic. Pupils equal, round and reactive. Speech is fluent. EXTREMITIES: Show no clubbing, no cyanosis. No appreciable edema. MUSCULOSKELETAL: Lower extremity strength is symmetrical 5/5. Muscle bulk is equal and symmetrical comparing left lower extremity to right. Seated straight leg raising negative. Supine straight leg raising remains positive on the left at about 50 degree angle. Though limitation is noted due to body habitus. Aki's test is negative. Gait appears mildly antalgic favoring left lower extremity over right. Muscle bulk is symmetrical in comparing the lower extremities. Stance shows a slight loss of lordotic curvature. The patient is able to toe walk and heel walk with some assistance. ASSESSMENT: 1. Symptomatic lumbar radiculopathy. 2. Displacement of lumbar intervertebral disk with radiculopathy. 3. Lumbosacral spondylosis with radiculopathy. 4. Lumbar degeneration. 5. Chronic intractable pain. PLAN: 1. The patient returns today in followup visit to begin the process of preauthorization to undergo next in the series of lumbar epidural injections. The patient reports greater than 50% improvement in overall pain with previous epidural injection. He is very pleased with response to this injection, returning today in followup visit with recurrent pain for which he places pain score around 8/10. The patient states he is not able to go about activities of daily living due to increasing pain. He has had to limit some of his activities and is having difficulty even performing his job at work. He returns today in followup visit requesting to begin the process of authorization to undergo lumbar epidural injection. We discussed with the patient the continued use of epidural injections. The fact that he has seen excellent benefit with the medication and able to return to majority of activities of daily living, would recommend continuing this therapy. We will begin the process of authorization immediately and contact the patient once this has been completed. I have advised the patient if we can achieve this authorization in the next day or two, I will be more than willing to return to the clinic to provide this injection for him. We will begin this process immediately, contact him once we have this authorization completed. 2. The patient was provided prescription of hydrocodone/acetaminophen 5/325 one tab p.o. q. 8 hours p.r.n. for pain. This should help with the patient's ongoing pain issues and potentially allow for improved function as we await the next in the series of epidural injections. I have given the patient #60 tablets, advised the patient to take as directed. He is not to utilize the medication prophylactically. He will watch for side effects of sleepiness, disorientation, confusion, mental slowing and constipation with its use. If he notes any side effects, discontinue immediately. [facility] [address] [place] [address] PAIN MANAGEMENT CONSULTATION Name: NGUYEN HUTCHINSON Room #: REG [facility] Thuy#: [id number] Admission: 07/24/20 Attend Phys: Melquiades Barrios DO Discharge: Date of : 60 Report #: [id number] 3. We will see the patient back in followup visit once authorization has been obtained to undergo lumbar epidural injection to address lumbar radiculopathy involving the low back radiating down the left leg in classic dermatomal distribution. Again, we wish to thank you for the opportunity to see the patient in consultation. <ELECTRONICALLY SIGNED> By: Melquiades Barrios DO 07/24/20 1253 [id number] Melquiades Barrios DO /nt
== END ==
LOC: PAIN 02-07 12:06
PROVIDERS: ATTEND Anesthesiology Pain Medicine
DX: M51.17 Intervertebral disc disorders with radiculopathy, lumbosacral region (principal); M79.605 Pain in left leg; R20.2 Paresthesia of skin; M47.27 Other spondylosis with radiculopathy, lumbosacral region; G89.29 Other chronic pain; Z88.8 Allergy status to other drugs, medicaments and biological substances; Z79.899 Other long term (current) drug therapy

== ENCOUNTER → 2020-07-26 | Outpatient (CLI) | payer OTHER ==
[~2020-07-26] VITALS: Ht 175.3 cm; Wt 141.5 kg
--- NOTE | ~2020-07-26 | HPC ---
[address] [address] PAIN MANAGEMENT CONSULTATION Name: NGUYEN HUTCHINSON Room #: REG ELISA IzquierdoVivekBoVivek#: [id number] Admission: 07/26/20 Attend Phys: Melquiades Barrios DO Discharge: Date of : 60 Report #: [id number] THIS REPORT FOR: cc: Melquiades Conde James A. DO Johnson, James E. DO ~ CC: Fatmata Barrios DATE OF SERVICE: 07/26/2020 CHIEF COMPLAINT: Low back pain, bilateral lower extremity pain with paresthesias. HISTORY OF PRESENT ILLNESS: As you know, the patient is a pleasant 60-year-old male who returns today in followup visit having received preauthorization to undergo lumbar epidural injection under fluoroscopic guidance. We saw the patient Thursday of this week where he was diagnosed with recurrent lumbar radiculopathy. We received authorization for the patient to undergo an epidural injection today. We made accommodations for the patient to be seen this morning 07/26/2020 to undergo next in the series of lumbar epidural injections to address his 8/10 pain. The patient states his pain is exacerbated with standing, movement, activity, improves with sitting, lying down and previous epidural injections. He returns today in followup visit for the next in the series of lumbar epidural injections to address lumbar radiculopathy. ALLERGIES: NAPROXEN, PENICILLIN, OXYCODONE, ASPIRIN, GABAPENTIN, CYCLOBENZAPRINE, DIPHENHYDRAMINE. CURRENT MEDICATIONS: Hydrocodone/acetaminophen, tramadol, Tylenol Extra Strength, Orencia, methotrexate, Advair, Xolair, Plaquenil, folic acid and amlodipine/benazepril. SOCIAL HISTORY: The patient denies tobacco, alcohol, IV or illicit drug use. He is working, not receiving workmen's compensation, unaccompanied today. IMAGING: No new imaging available. PHYSICAL EXAMINATION: VITAL SIGNS: Blood pressure 140/90, pulse 75, respiratory rate 16 and unlabored, the patient is 99% on room air. Height 5 feet 9 inches tall, weight 312 pounds, BMI calculated 46.1. GENERAL: Well-developed, well-nourished, well-hydrated, class 3 morbidly obese male, he appears stated age, pain is rated today at 8/10. HEENT: Normocephalic, atraumatic. Pupils equal, round and reactive. Speech [facility] [address] [place] [address] PAIN MANAGEMENT CONSULTATION Name: NGUYEN HUTCHINSON Room #: REG [facility]#: [id number] Admission: 07/26/20 Attend Phys: Melquiades Barrios DO Discharge: Date of : 60 Report #: [id number] fluent. EXTREMITIES: Show no clubbing, no cyanosis. Again, no appreciable edema in the upper or lower extremities. MUSCULOSKELETAL: Seated straight leg raising is negative. Supine straight leg raising positive on the left. Aki's test is negative. Modified Gaenslen's positive for axial low back pain. Ankle clonus negative. Babinski is remaining negative. ASSESSMENT: 1. Symptomatic lumbar radiculopathy. 2. Displacement of lumbar intervertebral disk with radiculopathy. 3. Lumbosacral spondylosis with radiculopathy. 4. Lumbar degeneration. 5. Chronic intractable pain. PLAN: 1. The patient returns today in followup visit to undergo lumbar epidural injection under fluoroscopic guidance. He has received authorization to undergo the procedure today. He is now placing pain score at 8/10. The patient and I did discuss the risks and the benefits of this procedure. These risks include but are not necessarily limited to bleeding, bruising, infection, worsening pain, no relief of pain, also risk of temporary or permanent muscle weakness, temporary or permanent nerve damage, possible paralysis and . The patient states understood and wished to proceed. 2. No medication changes made at today's visit. The patient will continue current medical therapy as prior prescribed. 3. We will see the patient back in followup visit in 6 weeks. At that time, we will review the efficacy of today's epidural injection and determine if next in the series of epidural injections might be recommended. PROCEDURE NOTE: DESCRIPTION OF PROCEDURE: L5-S1 intralaminar epidural steroid injection under fluoroscopic guidance. After obtaining written consent, the patient was taken back to fluoroscopy suite, placed in prone position with a pillow under abdomen to decrease lumbar lordosis. Skin overlying lumbosacral area then prepped and draped in aseptic fashion. Lumbar intervertebral spaces were identified by AP fluoroscopy. Skin and subcutaneous tissue overlying target site injection anesthetized with 3 mL of 1% lidocaine. A 20-gauge 4-1/2 inch Tuohy needle advanced under fluoroscopic guidance towards the epidural space using a parasagittal approach. Epidural space identified using loss of resistance to air technique. After negative aspiration for heme or cerebrospinal fluid, 0.3 mL of Omnipaque injected. Lumbar epidurogram [address] [address] PAIN MANAGEMENT CONSULTATION Name: NGUYEN HUTCHINSON Room #: REG ELISA Daley#: [id number] Admission: 07/26/20 Attend Phys: Melquiades Barrios DO Discharge: Date of : 60 Report #: [id number] confirmed using both AP and lateral fluoroscopy. After negative aspiration for heme or cerebrospinal fluid, 5 mL of a solution containing 2 mL 40 mg per mL, 80 mg total triamcinolone along with 3 mL of lidocaine 1% injected slowly. Needle retracted approximately half way, flushed with 1 mL of 1% lidocaine and then removed. Sterile bandage placed over injection site. No new motor deficits present in the lower extremities following procedure. The patient tolerated procedure well, carefully escorted to recovery room in stable condition. No apparent complications. After meeting discharge criteria, the patient discharged home. By: [id number] Melquiades Barrios DO /nt
[2020-07-26 07:37] VITALS: BP 140/90
--- NOTE | 2020-07-26 07:37 | NUR ---
Pain Clinic Assessment: 1. History of Osteoarthritis: Right Upper Extremity Left Upper Extremity History of Rheumatoid Arthritis: GENERALIZED UNDER TREATMENT. 2. Height: 5 ft. 9 in. 175.3 cm. Weight: 312.0 lb. oz. 141.523 kg. Patient's BMI: 46.1 3. Vital Signs: BP: 140/90 Pulse: 75 Resp: 16 Temp: 02 Sat: 99 ECG Mon: 4. Pain Intensity: 8 5. Fall Risk: Dizziness: N Needs help standing or walking: N Fallen in the last 3 months: N Fall risk comments: 6. Patient on Blood Thinner: None 7. History of Hypertension: Y 8. Opioid Therapy greater than 6 weeks: N Opiate Contract Signed: 9. Risk Assessment Tool Provided: LOW RISK-0 10. Functional Assessment Tool: 11. Recreational Drug Use: Never Drug Type: Tobacco Use: Never Smoker Tobacco Type: Amount or Packs/day: How Many Years: Alcohol Use: No Frequency: Quant:
== END ==
LOC: PAIN 06:37
PROVIDERS: ATTEND Anesthesiology Pain Medicine
DX: M54.5 Low back pain (principal); M51.16 Intervertebral disc disorders with radiculopathy, lumbar region; M47.26 Other spondylosis with radiculopathy, lumbar region; G89.29 Other chronic pain; Z79.899 Other long term (current) drug therapy; Z88.0 Allergy status to penicillin; Z88.1 Allergy status to other antibiotic agents; Z88.5 Allergy status to narcotic agent; Z88.8 Allergy status to other drugs, medicaments and biological substances

== ENCOUNTER → 2020-09-04 | Outpatient (CLI) | payer OTHER ==
[~2020-09-04] VITALS: Ht 175.3 cm; Wt 142.8 kg
[2020-09-04 09:10] VITALS: BP 135/85
--- NOTE | 2020-09-04 09:18 | NUR ---
Pain Clinic Assessment: 1. History of Osteoarthritis: Right Upper Extremity Left Upper Extremity History of Rheumatoid Arthritis: GENERALIZED UNDER TREATMENT. 2. Height: 5 ft. 9 in. 175.3 cm. Weight: 314.8 lb. oz. 142.793 kg. Patient's BMI: 46.5 3. Vital Signs: BP: 135/85 Pulse: 77 Resp: 16 Temp: 02 Sat: 98 ECG Mon: 4. Pain Intensity: 7-8 5. Fall Risk: Dizziness: N Needs help standing or walking: N Fallen in the last 3 months: N Fall risk comments: 6. Patient on Blood Thinner: None 7. History of Hypertension: Y 8. Opioid Therapy greater than 6 weeks: N Opiate Contract Signed: 9. Risk Assessment Tool Provided: LOW RISK-0 10. Functional Assessment Tool: 11. Recreational Drug Use: Never Drug Type: Tobacco Use: Never Smoker Tobacco Type: Amount or Packs/day: How Many Years: Alcohol Use: No Frequency: Quant:
--- NOTE | 2020-09-05 11:11 | HPC ---
[facility] [place] [address] PAIN MANAGEMENT CONSULTATION Name: NGUYEN HUTCHINSON Room #: REG ELISA Vivek.#: [id number] Admission: 09/04/20 Attend Phys: Melquiades Barrios DO Discharge: Date of : 60 Report #: [id number] CC: Melquiades Briones DATE OF SERVICE: 09/04/2020 REFERRING PHYSICIAN: Melquiades Conde DO CHIEF COMPLAINT: Low back pain, bilateral lower extremity pain and paresthesias. HISTORY OF PRESENT ILLNESS: As you know, the patient is a very pleasant 60-year-old morbidly obese male who returns today in followup visit to undergo next in the series of lumbar epidural injections to address lumbar radiculopathy. The patient has done very well with previous epidural injections, reporting good efficacy with each treatment. Unfortunately, his symptoms tend to return. 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 He states his pain is improved with epidural injections, medication management and rest and relaxation. He returns today in followup visit having received authorization to undergo a lumbar epidural injection under fluoroscopic guidance. ALLERGIES: NAPROXEN, PIPERACILLIN, OXYCODONE, ASPIRIN, GABAPENTIN, CYCLOBENZAPRINE, DIPHENHYDRAMINE. CURRENT MEDICATIONS: Hydrocodone/acetaminophen, tramadol, Tylenol Extra Strength, Orencia, methotrexate, Advair, Xolair, Plaquenil, folic acid, amlodipine, benazepril. SOCIAL HISTORY: The patient denies tobacco, alcohol, IV or illicit drug use. He is working, not receiving workmen's compensation, unaccompanied today. IMAGING: No new imaging available. PHYSICAL EXAMINATION: VITAL SIGNS: Blood pressure 135/85, pulse 77, respiratory rate 16 and unlabored. The patient is 98% on room air. Height 5 feet 9 inches tall, weight 314.8 pounds, BMI calculated 46.5. GENERAL: Well-developed, well-nourished, well-hydrated, class 3, morbidly obese 60-year-old male appearing his stated age, pain is rated today around 7-8/10. HEENT: Normocephalic, atraumatic. Pupils equal, round and reactive. Speech is fluent. EXTREMITIES: Show no clubbing, no noticeable edema. MUSCULOSKELETAL: Lower extremity strength is symmetrical 5/5, intact to light touch from L1 through S2 dermatomes. Seated straight leg raising negative. Supine straight leg raising positive on the left at about 60-degree angle, though this is limited by body habitus. Aki's test is negative. Modified Gaenslen's positive for axial low back pain. Muscle bulk and tone is symmetrical in lower extremities. ASSESSMENT: 1. Symptomatic lumbar radiculopathy. 2. Displacement of lumbar intervertebral disk with radiculopathy. 3. Lumbosacral spondylosis with radiculopathy. 4. Lumbar degeneration. 5. Chronic intractable pain. PLAN: 1. The patient has returned today in followup visit requesting a lumbar epidural injection under fluoroscopic guidance. We have received authorization for the patient to undergo this epidural injection. He has been advised risks and benefits of the procedure, states understood and wished to proceed. 2. The patient has requested that we refill his hydrocodone. He states he is doing well with this medication, denying side effects of sleepiness, disorientation and confusion. We have agreed to provide a refill of medications today. He was given this prescription of hydrocodone 5/325 one tab p.o. q. 8 hours p.r.n. for pain, #60 tablets, releasing today. The patient was advised to take the medication as directed, not to rely on the medication prophylactically. 3. We will see the patient back in followup visit for the next in the series of lumbar epidural injections. We are hopeful the patient will see good and prolonged benefit with today's procedure. PROCEDURE NOTE DESCRIPTION OF PROCEDURE: L5-S1 left parasagittal epidural steroid injection under fluoroscopic guidance. After obtaining written consent, the patient was taken back to fluoroscopy suite, placed in prone position with pillow under abdomen to decrease lumbar lordosis. Skin overlying lumbosacral area prepped and draped in aseptic fashion. The L5-S1 vertebral interspace identified by AP fluoroscopy. Skin and subcutaneous tissue overlying target site injection anesthetized with 3 mL of 1% lidocaine. A 20-gauge 3-1/2 inch Tuohy needle advanced under fluoroscopic guidance towards the epidural space using a left parasagittal approach. Epidural space identified using loss of resistance to air technique. After negative aspiration for heme or cerebrospinal fluid, 1 mL of Omnipaque injected. Lumbar epidurogram confirmed using both AP and lateral fluoroscopy. After negative aspiration for heme or cerebrospinal fluid, 5 mL of a solution containing 2 mL 40 mg per mL, 80 mg total triamcinolone along with 3 mL of lidocaine 1% injected slowly. Needle retracted senior care, flushed with 1 mL of 1% lidocaine and removed. Sterile bandage placed over injection site. No new motor deficits present in lower extremity following procedure. The patient tolerated procedure well, carefully escorted to recovery room in stable condition. No apparent complications. After meeting discharge criteria, the patient discharged home. <ELECTRONICALLY SIGNED> By: Melquiades Barrios DO 09/05/20 1111 [id number] Melquiades Barrios DO /nt
== END | disposition home or self-care (01) ==
LOC: PAIN 06:50
PROVIDERS: ATTEND Anesthesiology Pain Medicine
DX: M51.16 Intervertebral disc disorders with radiculopathy, lumbar region (principal); M47.27 Other spondylosis with radiculopathy, lumbosacral region; G89.29 Other chronic pain; E66.01 Morbid (severe) obesity due to excess calories; Z79.899 Other long term (current) drug therapy; Z98.890 Other specified postprocedural states; Z79.891 Long term (current) use of opiate analgesic; Z68.42 Body mass index [BMI] 45.0-49.9, adult; Z88.8 Allergy status to other drugs, medicaments and biological substances; Z88.0 Allergy status to penicillin

== ENCOUNTER → 2020-09-26 | Outpatient (CLI) | payer OTHER | LOC: ULTRA 09:09 | PROVIDERS: ATTEND Family Medicine | DX: M79.604 Pain in right leg (principal) ==

== ENCOUNTER → 2020-10-31 | Outpatient (CLI) | payer OTHER ==
[~2020-10-31] VITALS: Ht 175.3 cm; Wt 142.2 kg
[~2020-10-31] MED LIST changes: +JANUVIA100 MG PO; +LIPITOR 20 MG T20 M1 PO; +XARELTO20 MG PO
[2020-10-31 14:17] VITALS: BP 131/79
--- NOTE | 2020-10-31 14:46 | NUR ---
Pain Clinic Assessment: 1. History of Osteoarthritis: Right Upper Extremity Left Upper Extremity History of Rheumatoid Arthritis: GENERALIZED UNDER TREATMENT. 2. Height: 5 ft. 9 in. 175.3 cm. Weight: 313.6 lb. oz. 142.248 kg. Patient's BMI: 46.3 3. Vital Signs: BP: 131/79 Pulse: 79 Resp: 20 Temp: 02 Sat: 100 ECG Mon: 4. Pain Intensity: 9-10 5. Fall Risk: Dizziness: N Needs help standing or walking: N Fallen in the last 3 months: N Fall risk comments: 6. Patient on Blood Thinner: XARELTO 7. History of Hypertension: Y 8. Opioid Therapy greater than 6 weeks: N Opiate Contract Signed: 9. Risk Assessment Tool Provided: LOW RISK-0 10. Functional Assessment Tool: 11. Recreational Drug Use: Never Drug Type: Tobacco Use: Never Smoker Tobacco Type: Amount or Packs/day: How Many Years: Alcohol Use: No Frequency: Quant:
--- NOTE | 2020-11-06 07:00 | HPC ---
[facility] [place] [address] PAIN MANAGEMENT CONSULTATION Name: NGUYEN HUTCHINSON Room #: REG ELISA ZacBoVivek#: [id number] Admission: 10/31/20 Attend Phys: Melquiades Barrios DO Discharge: Date of : 60 Report #: [id number] THIS REPORT FOR: cc: Melquiades Conde James A. DO Johnson, James E. DO ~ DATE OF SERVICE: 10/31/2020 REFERRING NURSE PRACTITIONER: Fatmata Scales PRIMARY CARE PHYSICIAN: Melquiades Conde CHIEF COMPLAINT: Low back pain, bilateral lower extremity pain with paresthesias. HISTORY OF PRESENT ILLNESS: As you know, the patient is a very pleasant 60-year-old male who returns today in followup visit with ongoing back pain and bilateral lower extremity pain for which he placed his pain score at 9-10/10. The patient typically undergoes epidural injections with good benefit and utilizes p.r.n. medication for pain control. Unfortunately, he has recently been found to have a DVT in the right lower extremity and has been started on Xarelto and now is precluded from undergoing epidural injections until which time he can go off the Xarelto. He returns today to discuss options for treatment. Again, the patient is placing the pain score at 9-10/10. He has had no changes in his axial back and bilateral lower extremity pain since our last visit. Pain is in the similar distribution. ALLERGIES: NAPROXEN, PIPERACILLIN, OXYCODONE, ASPIRIN, GABAPENTIN, CYCLOBENZAPRINE, DIPHENHYDRAMINE. CURRENT MEDICATIONS: Hydrocodone/acetaminophen 5/325 one tab p.o. q. 8 hours p.r.n. pain, tramadol 50 mg p.o. q.8 hours p.r.n. mild pain secondary to rheumatoid issues, Tylenol Extra Strength 500 mg dose 3 times a day, Orencia as directed, methotrexate 25 mg per week, Advair Diskus 230/21 b.i.d., Xolair 150 mg subcu every other week, ferrous sulfate 325 mg per day, Plaquenil 200 mg 2 tabs p.o. q.a.m., folic acid 2 mg once a day, amlodipine/benazepril 5/20 mg dose 1 tab p.o. at bedtime. SOCIAL HISTORY: The patient denies tobacco, alcohol, IV or illicit drug use. He is working, not receiving workmen's compensation and unaccompanied today. IMAGING: No new imaging available. PHYSICAL EXAMINATION: VITAL SIGNS: Blood pressure 131/79, pulse 79, respiratory rate 20 and unlabored. The patient is 100% on room air. Height 5 feet 9 inches tall, [place] [address] PAIN MANAGEMENT CONSULTATION Name: NGUYEN HUTCHINSON Room #: [id number] Admission: 10/31/20 Attend Phys: Melquiades Barrios DO Discharge: Date of : 60 Report #: [id number] weight 313.6 pounds. BMI calculated at 46.3. GENERAL: Well-developed, well-nourished, well-hydrated, class 3, severely morbidly obese 60-year-old male, appearing stated age. Pain is rated today at 9-10/10. HEENT: Normocephalic, atraumatic. Pupils are round. NEUROLOGIC: Speech is fluent. The patient is wearing a mask in compliance with COVID-19 regulations. EXTREMITIES: Show no clubbing, no cyanosis. No noticeable edema. MUSCULOSKELETAL: Lower extremity strength remains symmetrical, 5/5. He is intact to light touch from L1 through S2 dermatomes. Seated straight leg raising is negative. Supine straight leg raising is positive. Aki's test is negative. Modified Gaenslen's positive for axial low back pain. Ankle clonus negative. Gait mildly antalgic, favoring the left lower extremity. ASSESSMENT: 1. Symptomatic lumbar radiculopathy. 2. Displacement of lumbar intervertebral disk with radiculopathy. 3. Lumbosacral spondylosis with radiculopathy. 4. Lumbar degeneration. 5. Chronic intractable pain. PLAN: 1. The patient returns today in followup visit. Unfortunately, on Xarelto for the next 5 months at minimum. He was found to have a right lower extremity, deep vein thrombosis. This is going to require long-term anticoagulant therapy. This precludes the patient from undergoing epidural injections until which time he can stop the Xarelto for a total of 3 days to safely undergo any type of lumbar epidural injection. We have discussed this with the patient today. It is understandable that he is quite concerned as his pain has intensified and he typically sees good benefit with epidural injections, that in combination with medication management. 2. The patient will be continued on his hydrocodone, 5/325 one tab p.o. q. 8 hours p.r.n. for pain. I have given the patient #60 tablets for 1 month with 1 refill for a 2-month prescription total. All prescriptions sent via e-scribe to local pharmacy. 3. The patient has requested that we provide a refill of his tramadol, typically provided through his patch washer for [id number] pain. I have agreed to provide the patient with a prescription today and a refill for 4 weeks from today with the understanding that this medication should not be used in combination with the hydrocodone as they are both immediate release pain medications. If the patient wishes to continue his tramadol, he will need to receive this through his patch washer as we have the patient on a more potent active medicine for his axial back pain and bilateral lower extremity symptoms. A prescription was sent via e-scribe to local pharmacy. 4. We will see the patient back in followup visit in 2 months. At that time, discuss the efficacy of medications to determine if any other adjustments need [address] [address] PAIN MANAGEMENT CONSULTATION Name: NGUYEN HUTCHINSON Room #: REG [facility] Moriah.#: [id number] Admission: 10/31/20 Attend Phys: Melquiades Barrios DO Discharge: Date of : 60 Report #: [id number] to be made. We did discuss with the patient the possibility of initiating a neuropathic medication but he is resistant to initiate that treatment course. We would recommend with this patient, either Lyrica or gabapentin as a treatment option. He has been on this in the past in the form of gabapentin and did not feel there was much in the way of benefit but we are also utilizing epidural injections which were controlling most of his symptoms. We may have to restart a neuropathic medication in the very near future. We will see him back in 2 months to discuss this further. <ELECTRONICALLY SIGNED> By: Melquiades Barrios DO 11/06/20 0700 [id number] Melquiades Barrios DO /ke
== END ==
LOC: PAIN 10-02 10:03
PROVIDERS: ATTEND Anesthesiology Pain Medicine
DX: M47.27 Other spondylosis with radiculopathy, lumbosacral region (principal); M51.16 Intervertebral disc disorders with radiculopathy, lumbar region; G89.4 Chronic pain syndrome; Z79.891 Long term (current) use of opiate analgesic

== ENCOUNTER → 2020-12-18 | Outpatient (CLI) | payer OTHER ==
[~2020-12-18] VITALS: Ht 175.3 cm; Wt 140.7 kg
[~2020-12-18] MED LIST changes: +HYDROCODONE-AP1 EA11 PO; +LYRICA 75 MG CA75 MG PO
[2020-12-18 08:03] VITALS: BP 130/81
--- NOTE | 2020-12-18 08:07 | NUR ---
Pain Clinic Assessment: 1. History of Osteoarthritis: Right Upper Extremity Left Upper Extremity History of Rheumatoid Arthritis: GENERALIZED UNDER TREATMENT. 2. Height: 5 ft. 9 in. 175.3 cm. Weight: 310.2 lb. oz. 140.706 kg. Patient's BMI: 45.8 3. Vital Signs: BP: 130/81 Pulse: 74 Resp: 18 Temp: 02 Sat: 96 ECG Mon: 4. Pain Intensity: 10 5. Fall Risk: Dizziness: N Needs help standing or walking: N Fallen in the last 3 months: N Fall risk comments: 6. Patient on Blood Thinner: XARELTO 7. History of Hypertension: Y 8. Opioid Therapy greater than 6 weeks: N Opiate Contract Signed: 9. Risk Assessment Tool Provided: LOW RISK-0 10. Functional Assessment Tool: 11. Recreational Drug Use: Never Drug Type: Tobacco Use: Never Smoker Tobacco Type: Amount or Packs/day: How Many Years: Alcohol Use: No Frequency: Quant:
--- NOTE | 2020-12-19 10:29 | HPC ---
[facility] [place] [address] PAIN MANAGEMENT CONSULTATION Name: NGUYEN HUTCHINSON Room #: REG ELISA Thuy#: [id number] Admission: 12/18/20 Attend Phys: Melquiades Barrios DO Discharge: Date of : 60 Report #: [id number] THIS REPORT FOR: cc: Melquiades Conde James A. DO Johnson, James E. DO ~ DATE OF SERVICE: 12/18/2020 CHIEF COMPLAINT: Low back pain, bilateral lower extremity pain with paresthesias. HISTORY OF PRESENT ILLNESS: As you know, the patient is a very pleasant 60-year-old male returning in followup visit with continued low back pain, bilateral lower extremity pain with paresthesias. He is placing pain score 10/10. The patient has discontinued his Xarelto in preparation to undergo lumbar epidural injection. He has sought evaluation through Neurosurgery, who has advised him at this time to trial conservative treatment. We have been able to control the symptoms to some degree with epidural injections and he wants to discuss the possibility of making adjustments in medication management today. He states he is becoming somewhat depressed and feels like he is losing some of his life to this pain. He is considering surgical options further, but wishes to make some adjustments in therapy at this time. ALLERGIES: NAPROXEN, PIPERACILLIN, OXYCODONE, ASPIRIN, GABAPENTIN, CYCLOBENZAPRINE, DIPHENHYDRAMINE. CURRENT MEDICATIONS: Hydrocodone/acetaminophen 5/325 one tab every 8 hours p.r.n. pain, tramadol 50 mg every 8 hours p.r.n. mild to moderate pain, Tylenol Extra Strength 500 mg 3 tabs 3 times a day, Orencia as directed, methotrexate 25 mg once a day, Advair Diskus 1 puff b.i.d., Xolair 150 mg subcutaneously every week, ferrous sulfate 325 mg per day, Plaquenil 400 mg q.a.m., folic acid 2 mg once a day, amlodipine/benazepril 5/20 mg once a day. SOCIAL HISTORY: The patient denies tobacco, alcohol, IV or illicit drug use. He is working, not receiving workmen's compensation nor is he trying to obtain discrete benefits. Unaccompanied at today's visit. IMAGING: No new imaging available. PHYSICAL EXAMINATION: VITAL SIGNS: Blood pressure 130/81, pulse 74, respiratory rate 18 and unlabored. The patient is 96% on room air. Height 5 feet 9 inches tall, weight 310.2 pounds, BMI calculated 45.8. GENERAL: Well-developed, well-nourished, well-hydrated, class 3, morbidly obese 60-year-old male. He appears his stated age. He is in a [id number] distress secondary to pain, placing current pain score 10/10. [place] [address] PAIN MANAGEMENT CONSULTATION Name: NGUYEN HUTCHINSON Room #: REG Preet Daley#: [id number] Admission: 12/18/20 Attend Phys: Melquiades Barrios DO Discharge: Date of : 60 Report #: [id number] HEENT: Normocephalic, atraumatic. Pupils are round. Extraocular muscles are intact. The patient is wearing a mask in compliance with COVID-19 regulations. EXTREMITIES: Show no clubbing, no cyanosis, and no edema. MUSCULOSKELETAL: Lower extremity strength remains symmetrical 5/5. Muscle bulk and tone is symmetrical in comparing lower extremities. Intact to light touch from L1 through S2 dermatomes. Seated straight leg raising negative. Supine straight leg raising is positive. Aki's test negative. Modified Gaenslen's positive for axial low back pain. Ankle clonus negative. Babinski is negative. ASSESSMENT: 1. Symptomatic lumbar radiculopathy. 2. Displacement of lumbar intervertebral disk with radiculopathy. 3. Lumbosacral spondylosis with radiculopathy. 4. Lumbar degeneration. 5. Chronic intractable pain. PLAN: 1. The patient returns today in followup visit indicating a pain score of 10/10. He states that despite the fact that we have placed him on medications and he continues to undergo epidural injections, he is becoming somewhat depressed about his ongoing pain issues and the fact that it is not improving. We have discussed with the patient again today that a major contribution to his ongoing symptoms is his body habitus. He weighs 310 pounds, which should be somewhere between 195 and 215 based on his height. This extra weight exacerbates all of his symptoms related to his lumbar spine. We have discussed that he may consider options to treat his morbid obesity as well as treating his ongoing back issues. He has lost some weight since our last visit, he was 313 pounds in our visit in October and is down to a 310 today, which is an improvement, but is nowhere near the level of loss of weight he would have to obtain to gain some analgesic benefit. 2. We did discuss with the patient the opportunity to undergo next in the series of epidural injections. He does note analgesic benefit with these procedures and he has requested that we perform it today. He has been off his Xarelto in preparation for today's procedure for the past 3 days. He has been advised risks and benefits of the procedure, states understood and wished to proceed. 3. We will increase his hydrocodone from 5/325 to 7.5/325 and allow tablets to be given 4 times a day. This is an increase significant enough that if this medication is going to provide benefit. We should see benefit with this therapy. I have provided the patient a prescription of hydrocodone 7.5/325, #120 sent to his local pharmacy, no refills. 4. We have recommended initiation of a neuropathic medication. We will trial Lyrica. I have given him 75 mg dose of 1 tab p.o. at bedtime for 7 nights, increase to 2 tabs p.o. at bedtime for 7 nights, then 1 tab in the morning, 2 tablets at night for 7 days, then 2 tabs in the morning, 2 tablets at night or total of 150 mg b.i.d. The patient was advised during the titration and watch [address] [address] PAIN MANAGEMENT CONSULTATION Name: NGUYEN HUTCHINSON Amaya Room #: REG ELISA Daley#: [id number] Admission: 12/18/20 Attend Phys: Melquiades Barrios DO Discharge: Date of : 60 Report #: [id number] for any side effects of sleepiness, disorientation, confusion, mental slowing. If he notes any side effects, contact our clinic. 5. The patient is experiencing left middle finger numbness and tingling, which is consistent with carpal tunnel. He has been diagnosed with carpal tunnel in the past and this appears to be exacerbation of symptoms. We have given him a referral to Dr. Horton at [facility] to discuss treatment for carpal tunnel syndrome. Referral was provided to the patient in written form today. 6. The patient is considering surgical options at this time. He is hopeful that adjustments made today will improve overall symptoms. We plan to see him back in followup visit to discuss this further. We are hopeful the patient will see good benefit with the epidural injection in the medication adjustments made today. <ELECTRONICALLY SIGNED> By: Melquiades Barrios DO 12/19/20 1029 [id number] Melquiades Barrios DO /nt
== END | disposition home or self-care (01) ==
LOC: PAIN 06:42
PROVIDERS: ATTEND Anesthesiology Pain Medicine
DX: M51.16 Intervertebral disc disorders with radiculopathy, lumbar region (principal); M47.27 Other spondylosis with radiculopathy, lumbosacral region; G89.29 Other chronic pain; Z98.890 Other specified postprocedural states; Z79.899 Other long term (current) drug therapy; Z79.891 Long term (current) use of opiate analgesic; Z88.8 Allergy status to other drugs, medicaments and biological substances; Z88.0 Allergy status to penicillin

== ENCOUNTER → 2021-02-26 | Outpatient (CLI) | payer OTHER ==
[~2021-02-26] VITALS: Ht 175.3 cm; Wt 139.9 kg
[2021-02-26 08:44] VITALS: BP 124/77
--- NOTE | 2021-02-26 09:03 | NUR ---
Pain Clinic Assessment: 1. History of Osteoarthritis: Right Upper Extremity Left Upper Extremity History of Rheumatoid Arthritis: GENERALIZED UNDER TREATMENT. 2. Height: 5 ft. 9 in. 175.3 cm. Weight: 308.4 lb. oz. 139.890 kg. Patient's BMI: 45.5 3. Vital Signs: BP: 124/77 Pulse: 72 Resp: 16 Temp: 02 Sat: 96 ECG Mon: 4. Pain Intensity: 9 5. Fall Risk: Dizziness: N Needs help standing or walking: N Fallen in the last 3 months: N Fall risk comments: 6. Patient on Blood Thinner: XARELTO 7. History of Hypertension: Y 8. Opioid Therapy greater than 6 weeks: Y Opiate Contract Signed: 9. Risk Assessment Tool Provided: LOW RISK-0 10. Functional Assessment Tool: 11. Recreational Drug Use: Never Drug Type: Tobacco Use: Former Smoker Tobacco Type: Amount or Packs/day: How Many Years: Alcohol Use: No Frequency: Quant:
--- NOTE | 2021-02-27 08:18 | HPC ---
[facility] [place] [address] PAIN MANAGEMENT CONSULTATION Name: NGUYEN HUTCHINSON Room #: REG ELISA Thuy#: [id number] Admission: 02/26/21 Attend Phys: Ghada Rivera Discharge: Date of : 60 Report #: [id number] THIS REPORT FOR: cc: Melquiades Conde James A. DO Hocker, Amanda CNS ~ DATE OF SERVICE: 02/26/2021 CHIEF COMPLAINT: Low back pain, bilateral lower extremity pain and paresthesias. HISTORY OF PRESENT ILLNESS: As you know, this is a very pleasant 60-year-old gentleman who returns to the pain clinic today for renewal of opioid medications. He continues to experience low back pain with bilateral lower extremity pain and paresthesias. Today, he is reporting his pain score at 9/10. Mostly located in his left leg, though occasionally it does go into his right as well as his lower back. He is also complaining of some left hand numbness and tingly sensations. The patient reports at least 50% improvement of his pain after his last lumbar epidural steroid injection, which was in December. He reports that it slowly has returned after a month and a half and would like to schedule another epidural steroid injection. The patient is aware that he is on anticoagulation therapy that needs to be off that prior to his epidural. The patient is a very active with his job, which does cause some increased pain in his knees. He is also overweight that does not help with his overall discomfort. He does state that this movement does make his pain worse as well as weather changes, but overall he believes epidurals and his pain medication is beneficial. The patient is considering surgical options, but has recently bought a TENS unit to see if that is beneficial. He states that he is only utilize this 1-2 days and did find that it was effective. He is wondering about a possible implanted device that he has heard about that works like a TENS unit. ALLERGIES: NAPROXEN, PIPERACILLIN, OXYCODONE, ASPIRIN, GABAPENTIN, CYCLOBENZAPRINE, AND BENADRYL. CURRENT MEDICATIONS: Hydrocodone 7.5/325 p.r.n., Lyrica 150 mg b.i.d., tramadol p.r.n., atorvastatin, Januvia, Xarelto, Tylenol Arthritis, Orencia, methotrexate, Advair, Xolair, iron, Plaquenil, folic acid, amlodipine, and benazepril. PQRS: 1. He has upper and lower extremity arthritis as well as being treated for rheumatoid arthritis. 2. Height is 5 feet 9 inches, weight is 308, BMI is 45. This is a decrease of 2 [place] [address] PAIN MANAGEMENT CONSULTATION Name: NGUYEN HUTCHINSON Room #: REG CLPreet Daley#: [id number] Admission: 02/26/21 Attend Phys: Ghada Rievra Discharge: Date of : 60 Report #: [id number] 3. Vital signs, blood pressure 127/77, pulse is 72, respirations 16, and oxygen sat is 96%. 4. Pain score is 9/10. 5. Denies dizziness, does not need help walking or standing, has not fallen in the last 3 months. 6. The patient is on Xarelto as well as medications for hypertension. 7. Opioid therapy is greater than 6 weeks. We will have him sign an opioid signed contract today. 8. Risk assessment is low. Functional assessment is . 9. Recreational drug use, he denies. He is a former smoker and does not drink alcohol. According to the prescription monitoring system, he is filling his meds appropriately, filling them in a timely fashion with no other providers. His morphine mEq according to the CDC guidelines is 45 MMEs. PHYSICAL EXAMINATION: GENERAL: This is a well-developed, well-nourished class III, morbidly obese 60-year-old gentleman who appears his stated age, rating his pain score today at 9/10. He is a good historian. HEENT: Normocephalic, atraumatic. Extraocular eye muscles are intact. He is wearing a mask. EXTREMITIES: No clubbing, no cyanosis, no edema. MUSCULOSKELETAL: He has discomfort in his lumbar spine that radiates into his legs bilaterally. Modified Gaenslen's positive for axial low back pain. He has a mild antalgic gait favoring his left over his right. His lower extremity strength are symmetrical at 5/5. Straight leg raising is negative. Supine straight leg raising is positive. ASSESSMENT: 1. Symptomatic lumbar radiculopathy. 2. Displacement of lumbar intervertebral disk with radiculopathy. 3. Lumbosacral spondylosis with radiculopathy. 4. Lumbar degeneration. 5. Chronic intractable pain. 6. Possible carpal tunnel syndrome in his left wrist. PLAN: 1. We discussed treatment options with the patient today. The patient believes it is time for another epidural steroid injection. We will seek authorization for another injection. He received at least 50% relief from his last injection and helped for greater than a month and a half. He is aware he will need to stop his blood thinner for at least 3 days and will seek authorization to do this from his primary care doctor. Fortunately, the patient is scheduled for his second COVID vaccine early next week, so we will schedule him in about a month 2 weeks following his last COVID vaccine. [facility] [address] [place] [address] PAIN MANAGEMENT CONSULTATION Name: NGUYEN HUTCHINSON Room #: REG [facility].#: [id number] Admission: 02/26/21 Attend Phys: Ghada Rivera Discharge: Date of : 60 Report #: [id number] 2. The patient feels that the Lyrica has been beneficial in helping decrease some of his neuropathy in his lower extremities, but continues to experience numbness and tingly sensation in his left hand. We will again refer him to [facility], Dr. Horton for possible carpal tunnel. 3. We will continue him on his hydrocodone and tramadol p.r.n. He does utilize these when he is working and enable him to function better lifting while at work and does not need this medication when he is at home or sleeping. Scripts sent electronically by Dr. Melquiades Barrios for hydrocodone 7.5/325, #120 for today and 4-week release as well as tramadol 50 mg, #90 with one additional refill and Lyrica 75 mg 2 tablets b.i.d. 120 with 1 refill. 4. We did discuss his increasing issues in his knees. He is unable to take oral anti-inflammatories due to Xarelto use. I have encouraged him to try Voltaren gel [id number] to his knees several times a day and see if this is beneficial. Time spent in patient consultation, reviewing recent studies and clinical notes and physician reports, physical examination and correlation of findings of medical documentation to determine treatment options 20 minutes. Time spent preparation for appointment reviewing prescription monitoring system, reviewing previous medical records and proposed treatment options and current medications 5 minutes. Time spent preparing and sending electronic prescriptions with collaborating physician, Dr. Melquiades Barrios, documentation of visit and plan of treatment 6 minutes. Total time spent 31 minutes. <ELECTRONICALLY SIGNED> By: Ghada Rivera 02/27/21 0818 [id number] Ghada Rivera /nt
== END ==
LOC: PAIN 06:53
PROVIDERS: ATTEND Clinical Nurse Specialist Adult Health
DX: M51.16 Intervertebral disc disorders with radiculopathy, lumbar region (principal); M47.26 Other spondylosis with radiculopathy, lumbar region; G89.29 Other chronic pain; M79.604 Pain in right leg; M79.605 Pain in left leg; R20.2 Paresthesia of skin; Z88.8 Allergy status to other drugs, medicaments and biological substances; Z79.899 Other long term (current) drug therapy

== ENCOUNTER → 2021-03-26 | Outpatient (CLI) | payer OTHER ==
[~2021-03-26] VITALS: Ht 175.3 cm; Wt 136.9 kg
[~2021-03-26] MED LIST changes: +HYDROCODON-ACE1 EAC5 PO
[2021-03-26 08:02] VITALS: BP 154/80
--- NOTE | 2021-03-26 08:05 | NUR ---
Pain Clinic Assessment: 1. History of Osteoarthritis: Right Upper Extremity Left Upper Extremity History of Rheumatoid Arthritis: GENERALIZED UNDER TREATMENT. 2. Height: 5 ft. 9 in. 175.3 cm. Weight: 301.8 lb. oz. 136.896 kg. Patient's BMI: 44.5 3. Vital Signs: BP: 154/80 Pulse: 83 Resp: 18 Temp: 02 Sat: 98 ECG Mon: 4. Pain Intensity: 9 5. Fall Risk: Dizziness: N Needs help standing or walking: N Fallen in the last 3 months: N Fall risk comments: 6. Patient on Blood Thinner: XARELTO 7. History of Hypertension: Y 8. Opioid Therapy greater than 6 weeks: Y Opiate Contract Signed: 9. Risk Assessment Tool Provided: LOW RISK-0 10. Functional Assessment Tool: 11. Recreational Drug Use: Never Drug Type: Tobacco Use: Former Smoker Tobacco Type: Amount or Packs/day: How Many Years: Alcohol Use: No Frequency: Quant:
--- NOTE | 2021-03-27 07:59 | HPC ---
[facility] [place] [address] [place] [address] PAIN MANAGEMENT CONSULTATION Name: NGUYEN HUTCHINSON Room #: REG ELISA IzquierdoVivekBo.#: [id number] Admission: 03/26/21 Attend Phys: Melquiades Barrios DO Discharge: Date of : 60 Report #: [id number] THIS REPORT FOR: cc: Melquiades Conde James A. DO Johnson, James E. DO ~ DOC #: [id number] DATE OF SERVICE: 03/26/2021 CHIEF COMPLAINT: Low back pain, bilateral lower extremity pain with paresthesias. HISTORY OF PRESENT ILLNESS: As you know, the patient is a very pleasant 60-year-old male returning in followup visit to undergo lumbar epidural injection under fluoroscopic guidance. The patient is reporting ever increasing pain. He is now at a level of 9/10. States he cannot continue to function as he has even with the use of opioid medications and epidural injections, he is not seeing improvement in symptoms. We had discussed at our first visit treatment options for lumbar radiculopathy, he wishes to discuss those again today. He is considering surgical options at this time as he is not seeing improvement in symptoms. He states his pain has now begun to decrease his capability of going back to activities of daily living and continuing to work on a continued basis. He has suffered no injury, no trauma or any changes in his medical history since our last visit. ALLERGIES: NAPROXEN, PIPERACILLIN, OXYCODONE, ASPIRIN, GABAPENTIN, CYCLOBENZAPRINE, BENADRYL. CURRENT MEDICATIONS: Hydrocodone, tramadol p.r.n., Januvia, atorvastatin, Xarelto, Tylenol Arthritis, Orencia, methotrexate, Advair, Xolair, iron, Plaquenil, amlodipine, folic acid and benazepril. SOCIAL HISTORY: The patient continues to deny any tobacco use. Denies IV or illicit drug use. Denies any chronic alcohol use. He is working, not receiving workmen's compensation, unaccompanied today. IMAGING: No new imaging available. PHYSICAL EXAMINATION: VITAL SIGNS: Blood pressure 154/80, pulse is 83, respiratory rate 18 and unlabored. The patient 98% on room air. Height 5 feet 9 inches tall, weight 301.8 pounds, BMI calculated 44.5. GENERAL: Well-developed, well-nourished, well-hydrated class 3, morbidly obese 60-year-old male appearing his stated age. He is in mild distress secondary to pain placing current pain score 9/10[place] [address] PAIN MANAGEMENT CONSULTATION Name: NGUYEN HUTCHINSON [id number] Admission: 03/26/21 Attend Phys: Melquiades Barrios DO Discharge: Date of : 60 Report #: [id number] HEENT: Normocephalic, atraumatic. Pupils are round and responsive. The patient is wearing a mask in compliance with COVID-19 regulations. EXTREMITIES: Show no clubbing, no appreciable cyanosis, no edema. MUSCULOSKELETAL: Lower extremity strength equal and symmetrical 5/5. Muscle bulk and tone is symmetrical, comparing lower extremities. Seated straight leg raising positive on the left. Supine straight leg raising positive on the left. Aki's test is negative. The patient's gait is antalgic, favoring left lower extremity over right. Ankle clonus negative. Babinski is negative. ASSESSMENT: 1. Symptomatic lumbar radiculopathy. 2. Displacement of lumbar intervertebral disk with radiculopathy. 3. Lumbosacral spondylosis with radiculopathy. 4. Lumbar degeneration. 5. Chronic intractable pain. PLAN: 1. The patient returns today in followup visit to undergo lumbar epidural injection under fluoroscopic guidance. The patient is concerned that he is not seeing continued improvement with the epidural injections along with medication management. He wishes to consider other options. He and I have discussed in the past and discussed again today that his pathology may have changed since our initial visit where we saw the patient in consultation in August 2019. At that time, he had MRI that showed grade 1 anterolisthesis of L5 on S1 with pars defects and central canal changes. This may have progressed. I would recommend to the patient at this point if he is considering surgical options, which at this juncture he states he is that further imaging would be necessary. The patient is agreeable with this plan. He will undergo MRI of the lumbar spine at his earliest convenience. He will contact our clinic once he has had the imaging study completed. If surgical options are considered necessary, he would be willing to discuss his case with neurosurgery. The patient was given a prescription for MRI lumbar spine without contrast. 2. We have agreed to increase the patient's oral opioid medication from hydrocodone 7.5/325 to hydrocodone 10/325. This is an increase of 25%. The patient is to watch for side effects with this medication including sleepiness, disorientation, confusion, mental slowing or constipation. The patient's prescription was sent via E-script to local pharmacy with no refills. 3. The patient requests and wishes to submit to a lumbar epidural injection under fluoroscopic guidance. The patient has been advised the risks and benefits of this procedure. These risks include but are not necessarily limited to bleeding, bruising, infection, worsening pain, no relief of pain, also risk of temporary or permanent muscle weakness, temporary or permanent nerve damage, possible paralysis, and . The patient states understood and wished to proceed. 4. We plan to see the patient back in followup visit in approximately one month. We are hopeful by that time the patient will have undergone his MRI. We [address] [address] PAIN MANAGEMENT CONSULTATION Name: NGUYEN HUTCHINSON Room #: REG [facility]#: [id number] Admission: 03/26/21 Attend Phys: Melquiades Barrios DO Discharge: Date of : 60 Report #: [id number] will review the findings and discuss whether or not surgical options are going to be necessary. We will also review the efficacy of today's epidural injection and the addition of the hydrocodone at a higher dose. DESCRIPTION OF PROCEDURE: L5-S1 left paramedian epidural steroid injection under fluoroscopic guidance. After obtaining written consent, the patient was taken back to fluoroscopy suite, placed in prone position with pillow under abdomen to decrease lumbar lordosis. Skin overlying lumbosacral area prepped and draped in aseptic fashion. The L5-S1 vertebral interspace identified by AP fluoroscopy. Skin and subcutaneous tissue overlying target site injection anesthetized with 3 mL 1% lidocaine. A 20-gauge 4-1/2 inch Tuohy needle advanced under fluoroscopic guidance towards the epidural space using a left paramedian approach. Epidural space identified using loss of resistance to air technique. After negative aspiration for heme or cerebrospinal fluid, 1 mL of Omnipaque injected. Lumbar epidurogram confirmed using both AP and lateral fluoroscopy. After negative aspiration for heme or cerebrospinal fluid, 5 mL solution containing 2 mL 40 mg per mL 80 mg total triamcinolone along with 3 mL of lidocaine, 1% injected slowly. Needle retracted correction flushed with 1 mL of 1% lidocaine, then removed. Sterile bandage placed over injection site. No new motor deficits present in lower extremity following procedure. The patient tolerated the procedure well, carefully escorted to recovery room in stable condition. No apparent complications. After meeting discharge criteria, the patient discharged home. DO CANDY Rush/DERRELL <ELECTRONICALLY SIGNED> By: Melquiades Barrios DO 03/27/21 [id number] Melquiades Barrios DO /nt
== END | disposition home or self-care (01) ==
LOC: PAIN 06:56
PROVIDERS: ATTEND Anesthesiology Pain Medicine
DX: M51.16 Intervertebral disc disorders with radiculopathy, lumbar region (principal); M47.27 Other spondylosis with radiculopathy, lumbosacral region; G89.29 Other chronic pain; E66.01 Morbid (severe) obesity due to excess calories; Z98.890 Other specified postprocedural states; Z79.899 Other long term (current) drug therapy; Z88.0 Allergy status to penicillin; Z88.8 Allergy status to other drugs, medicaments and biological substances; Z68.41 Body mass index [BMI] 40.0-44.9, adult

== ENCOUNTER → 2021-05-21 | Outpatient (CLI) | payer OTHER ==
[~2021-05-21] MED LIST changes: +ALBUTEROL2.5 MG/31 INH; +DEXAMETHASONE1 MG PO; +DOXYCYCLINE 10100 MG PO; +PROTONIX40 M2 PO; +SIMVASTATIN80 MG PO
== END ==
LOC: RAD 07:44
PROVIDERS: ATTEND Pediatrics
DX: R91.8 Other nonspecific abnormal finding of lung field (principal)

== ENCOUNTER → 2021-06-04 | Outpatient (CLI) | payer OTHER ==
[~2021-06-04] VITALS: Ht 175.3 cm; Wt 130.8 kg
[~2021-06-04] MED LIST changes: +LYRICA150 MG PO; +METFORMIN HCL500 M3 PO; +TRELEGY ELLIPT1 EACH INH
[2021-06-04 08:06] VITALS: BP 124/59
--- NOTE | 2021-06-04 08:30 | NUR ---
Pain Clinic Assessment: 1. History of Osteoarthritis: Right Upper Extremity Left Upper Extremity History of Rheumatoid Arthritis: GENERALIZED UNDER TREATMENT. 2. Height: 5 ft. 9 in. 175.3 cm. Weight: 288.4 lb. oz. 130.818 kg. Patient's BMI: 42.6 3. Vital Signs: BP: 124/59 Pulse: 78 Resp: 16 Temp: 02 Sat: 97 ECG Mon: 4. Pain Intensity: 5 5. Fall Risk: Dizziness: N Needs help standing or walking: N Fallen in the last 3 months: N Fall risk comments: 6. Patient on Blood Thinner: XARELTO 7. History of Hypertension: Y 8. Opioid Therapy greater than 6 weeks: Y Opiate Contract Signed: 9. Risk Assessment Tool Provided: LOW RISK-0 10. Functional Assessment Tool: 11. Recreational Drug Use: Never Drug Type: Tobacco Use: Never Smoker Tobacco Type: Amount or Packs/day: How Many Years: Alcohol Use: No Frequency: Quant:
--- NOTE | 2021-06-05 13:41 | HPC ---
[facility] [place] [address] PAIN MANAGEMENT CONSULTATION Name: NGUYEN HUTCHINSON Room #: [facility] [id number] Admission: 06/04/21 Attend Phys: Ghada Rivera Discharge: Date of : 60 Report #: [id number] THIS REPORT FOR: cc: Melquiades Conde James A. DO Hocker, Amanda CNS ~ cc: Melquiades Conde DO, James E. Johnson, DO DATE OF SERVICE: 06/04/2021 CHIEF COMPLAINT: Chronic low back pain, bilateral lower extremity pain and paresthesias. HISTORY OF PRESENT ILLNESS: This is a 61-year-old gentleman who returns to the pain clinic today for renewal of his pain medications. Today, he is reporting that he had COVID and was in the hospital for a week in April. He reports not requiring any ventilation when he was there, but he was on supplemental oxygen. He has been recovering at home for the past month and has recently returned to work. The patient has had the Moderna vaccine, finishing his second dose in February, and then was diagnosed in the middle of April with COVID. The patient reports today that his pain is a 5/10. The epidural in the lumbar region that Dr. Melquiades Barrios performed in March was 100% beneficial. He believes he is still having good benefit from that injection. He is thankful that it worked so well since his pain was quite intense and he was considering surgical options before that epidural. Today, he reports that his pain is mostly in his lumbar region and is not radiating down his leg today. His worst pain is with standing and movement. He did just recently return to work. He does work night shifts and is on his feet walking for long hours. He believes this does increase his pain, but at this time he is still doing well. Overall, the utilization of heat, taking the hydrocodone 10/325, and tramadol are beneficial. The patient does state that he noticed a significant difference in the hydrocodone 7.5 to the hydrocodone 10/[address] Barrios prescribed for him at his last visit and believes this is very beneficial and would like to continue on that dose. He takes 1-2 tablets a day for severe pain. ALLERGIES: NAPROXEN, PENICILLIN, OXYCODONE, ASPIRIN, GABAPENTIN, FLEXERIL AND BENADRYL. MEDICATION LIST: Metformin ER, Trelegy Ellipta, albuterol, simvastatin, Januvia, Xarelto, Orencia, methotrexate, Xolair, iron, Plaquenil, folic acid, amlodipine, Lyrica, hydrocodone 10/325 and tramadol. PQRS: 1. He does have osteoarthritic changes in his upper and lower extremities as well as being treated for rheumatoid arthritis. 2. Height is 5 feet 9 inches, weight is 288. BMI is 42; this is down from [address] [place] [address] PAIN MANAGEMENT CONSULTATION Name: NGUYEN HUTCHINSON Room #: REG ELISA Daley#: [id number] Admission: 06/04/21 Attend Phys: Ghada Rivera Discharge: Date of : 60 Report #: [id number] at his last visit. Reports losing 20 pounds during his hospitalization. 3. Vital signs 124/59, pulse is 78, respirations 16, oxygen sat is 97. 4. Pain score is 5/10. 5. Denies dizziness, does not need help walking or standing, has not fallen in the last 3 months. 6. The patient is on Xarelto as well as medications for hypertension. His opioid therapy is greater than 6 weeks; therefore, an opioid signed contract is on the chart. 7. Risk assessment is low. Functional assessment: . Recreational drug use, he denies. He is not a smoker and does not drink alcohol. According to the prescription monitoring system, the patient has recently filled his tramadol and has not filled his hydrocodone for 2 months. This does coincide with how he reports taking his medications of 2 tablets a day. That was according to the prescription monitoring system. PHYSICAL EXAMINATION: GENERAL: This is a well-developed, well-nourished, well-hydrated class III, morbidly obese 61-year-old gentleman who appears his stated age, rating his pain score today at 5/10. HEENT: Normocephalic, atraumatic. Extraocular eye muscles are intact. He is wearing a mask. EXTREMITIES: No clubbing, no cyanosis, no edema. MUSCULOSKELETAL: His lower extremity strength is symmetrical. The patient has an antalgic gait favoring his left lower extremity over his right. Seated straight leg raising is positive on the left. He has a slightly antalgic gait. He has numerous abrasions on his arm with bleeding noted. The patient is on a blood thinner. IMPRESSION: 1. Symptomatic lumbar radiculopathy. 2. Displacement of a lumbar intervertebral disk with radiculopathy. 3. Lumbosacral spondylosis with radiculopathy. 4. Lumbar degeneration. 5. Chronic intractable pain. 6. Complex medical management utilizing scheduled opioid medications. 7. Recent COVID requiring hospitalization. We reviewed the fact that opiate medications are being used to provide analgesia adequate to support activities of daily living, not attempting to achieve a specific pain score on the 0-10 Visual Analog Scale. The current opiate medications are providing sufficient analgesia to allow the patient to participate in activities of daily living. The patient is not exhibiting any aberrant behavior suggestive of drug diversion. The patient is not having any adverse reactions to medications. The patient is not suffering from daytime somnolence or mental acuity changes. The patient is managing opiate-induced [facility] [address] [place] [address] PAIN MANAGEMENT CONSULTATION Name: NGUYEN HUTCHINSON Room #: REG [facility]#: [id number] Admission: 06/04/21 Attend Phys: Ghada Rivera Discharge: Date of : 60 Report #: [id number] constipation with appropriate [id number] agents and dietary considerations. The patient was counseled on concern for caution with operating a motor vehicle while using opiate medications. PLAN: 1. We discussed treatment options with the patient today. The patient does report that he had COVID, tried to manage symptoms at home with significant diarrhea and respiratory issues, then was hospitalized for 1 week, which required supplemental oxygen, but no ventilation. He did not go home on supplemental oxygen and has slowly recovered. The patient feels that he is back to his normal self, feeling stronger again with no residual effects. The patient did have the Moderna vaccine in January and February prior to getting COVID. 2. The patient found the epidural by Dr. Melquiades Barrios performed in March beneficial, helping at least 100%, and is still doing quite well. We did review his MRI and the possibility of having another injection in the future. We did discuss utilizing epidurals as long as they are effective in prolonging surgery as long as possible. 3. The patient does report some constipation issues and has recently started taking MiraLax on a daily basis and feels that this has been beneficial in helping reducing symptoms. He has noticed a change recently with returning to work. I explained that it may take time for his body to adjust to his new schedule again. 4. We will continue his hydrocodone 10/325, 60 tablets for today and 4-week release. The patient finds that the increase that Dr. Barrios provided him from 7.5 to 10/325 was beneficial. He will also continue his tramadol 50 mg #90, 1 month medication will be sent for that as well today. The patient recently filled his tramadol and we will try to have his medications line up for refills. 5. We will continue his Lyrica 75 mg 2 tablets in the morning, 2 tablets at night. The patient will return in 2 months or as needed for a repeat epidural steroid injection. Time spent with the patient in consultation, reviewing pertinent imaging, reviewing recent studies and clinical notes and physician reports, physical examination and correlation of findings and medical documentation to determine possible treatment options is 17 minutes. Time spent in preparation for appointment, reviewing prescription monitoring system, and reviewing previous records and proposed treatment options, reviewing current medications is 5 minutes. Time spent preparing and sending electronic prescriptions with Dr. Melquiades Barrios, documentation of visit and plan of treatment is [address] [address] PAIN MANAGEMENT CONSULTATION Name: EVANGELINANGUYEN Hendrix Room #: ADRIEL Daley#: [id number] Admission: 06/04/21 Attend Phys: Ghada Rivera Discharge: Date of : 60 Report #: [id number] Total time spent 27 minutes. <ELECTRONICALLY SIGNED> By: Ghada Rivera 06/05/211340 [id number] Ghada Rivera /ke
== END ==
LOC: PAIN 07:02
PROVIDERS: ATTEND Clinical Nurse Specialist Adult Health
DX: M47.27 Other spondylosis with radiculopathy, lumbosacral region (principal); M51.17 Intervertebral disc disorders with radiculopathy, lumbosacral region; G89.4 Chronic pain syndrome; Z79.899 Other long term (current) drug therapy; Z79.891 Long term (current) use of opiate analgesic; Z86.16 Personal history of COVID-19

== ENCOUNTER → 2021-07-17 | Outpatient (CLI) | payer OTHER ==
[~2021-07-17] VITALS: Ht 177.8 cm; Wt 133.8 kg
--- NOTE | ~2021-07-17 | HPC ---
[facility] [place] [address] PAIN MANAGEMENT CONSULTATION Name: NGUYEN HUTCHINSON Room #: REG ELISA MajorVivek#: [id number] Admission: 07/17/21 Attend Phys: Melquiades Barrios DO Discharge: Date of : 60 Report #: [id number] THIS REPORT FOR: cc: Melquiades Conde James A. DO Johnson, James E. DO ~ cc: Fatmata Fernando NP DATE OF SERVICE: 07/17/2021 REFERRING PHYSICIAN: Nurse practitioner, Fatmata Fernando. CHIEF COMPLAINT: Low back pain, bilateral lower extremity pain with paresthesias. HISTORY OF PRESENT ILLNESS: As you know, the patient is a 61-year-old male returning to our clinic requesting a lumbar epidural injection under fluoroscopic guidance. We have started the patient on medication management, for which he is finding benefit along with the use of intermittent epidural injections. He is considering surgical options to address his ongoing pain as he continues to have recurrence of symptoms due to the severity of the findings in his lumbar spine with the severe central canal stenosis at the L2-L3 level. He returns today in followup visit to undergo next in the series of lumbar epidural injections in hopes of improving pain. The patient denies specific injury or trauma that may have led to symptom development. He has had no changes in his medication management since our last visit. He has been off his Xarelto in preparation for today's procedure and the appropriate amount of time. ALLERGIES: NAPROXEN, PENICILLIN, OXYCODONE, ASPIRIN, GABAPENTIN, FLEXERIL, BENADRYL. CURRENT MEDICATIONS: Lyrica 150 mg twice a day, hydrocodone/acetaminophen 10/325 one tab every 8 hours p.r.n. for pain, metformin 500 mg twice a day, Trelegy Ellipta 100/62.5/25 inhaled once a day, albuterol 2 puffs q.4 hours p.r.n., simvastatin 80 mg per day, Januvia 100 mg once a day, Xarelto 20 mg once a day, Orencia 250 mg intravenous per month. Methotrexate 2.5, 20 mg per week. Xolair 150 mg subcu, ferrous sulfate 325 mg per day, hydroxychloroquine 200 mg twice a day, folic acid 1 mg per day, amlodipine/benazepril 5/20 mg once a day. SOCIAL HISTORY: The patient denies tobacco, alcohol or IV or illicit drug use. He continues to work, unaccompanied today. IMAGING: No new imaging available. PHYSICAL EXAMINATION: VITAL SIGNS: Blood pressure 155/79, pulse 74, respiratory rate 16 and unlabored. The patient 98% on room air. Height 5 feet 10 inches tall, weight [facility] [address] [place] [address] PAIN MANAGEMENT CONSULTATION Name: NGUYEN HUTCHINSON Room #: REG [facility].#: [id number] Admission: 07/17/21 Attend Phys: Melquiades Barrios DO Discharge: Date of : 60 Report #: [id number] 295 pounds, BMI calculated 42.3. GENERAL: Well-developed, well-nourished, well-hydrated, class III morbidly obese 61-year-old male, appearing stated age, pain is rated at 9.5/10. HEENT: Normocephalic, atraumatic. Pupils equal, round and responsive. EXTREMITIES: Show no clubbing, no cyanosis and no edema. MUSCULOSKELETAL: Lower extremity strength equal and symmetrical. He is presenting with an antalgic gait favoring left lower extremity over right. Seated straight leg raising positive on the right. Supine straight leg raising positive on the right, but limited due to body habitus. Muscle bulk and tone is equal and symmetrical in lower extremities. ASSESSMENT: 1. Symptomatic lumbar radiculopathy. 2. Displacement of lumbar intervertebral disk with radiculopathy. 3. Lumbosacral spondylosis with radiculopathy. 4. Lumbar degeneration. 5. Chronic intractable pain. PLAN: 1. The patient returns today in followup visit to undergo lumbar epidural injection under fluoroscopic guidance. The patient has been advised of the risks and the benefits of a lumbar epidural injection. These risks include, but are not necessarily limited to; bleeding, bruising, infection, worsening pain, no relief of pain, temporary or permanent muscle weakness, temporary or permanent nerve damage, possible paralysis, post-dural puncture headache and . The patient states understood and wished to proceed. 2. No medication changes made at today's visit. The patient will continue current medical therapy as prior prescribed. 3. We will see the patient back in followup visit on an as-needed basis for the next in the series of epidural injections. PROCEDURE NOTE DESCRIPTION OF PROCEDURE: L5-S1 interlaminar epidural steroid injection under fluoroscopic guidance. After obtaining written consent, the patient was taken back to fluoroscopy suite, placed in prone position with pillow under abdomen to decrease lumbar lordosis. Skin overlying lumbosacral area then prepped and draped in aseptic fashion. The L5-S1 vertebral interspace identified by AP fluoroscopy. Skin and subcutaneous tissue overlying target site injection anesthetized with 3 mL 1% lidocaine. A 20-gauge 4.5-inch Tuohy needle advanced under fluoroscopic guidance towards the epidural space using a parasagittal approach. Epidural space identified using loss of resistance to air technique. After negative aspiration for heme [facility] [address] [place] [address] PAIN MANAGEMENT CONSULTATION Name: NGUYEN HUTCHINSON Room #: REG CLI [facility].#: [id number] Admission: 07/17/21 Attend Phys: Melquiades Barrios DO Discharge: Date of : 60 Report #: [id number] or cerebrospinal fluid, 1 mL of Omnipaque injected. Lumbar epidurogram was confirmed using both AP and lateral fluoroscopy. After negative aspiration for heme or cerebrospinal fluid, 5 mL solution containing 1 mL 40 mg per mL, 40 mg total triamcinolone, 1 mL of Depo-Medrol 80 mg per mL, 80 mg total triamcinolone and 3 mL of lidocaine, 1% injected slowly. Needle retracted mcc, flushed with 1 mL of 1% lidocaine, then removed. Sterile bandage placed over injection site. No new motor deficits present in the lower extremity following procedure. The patient tolerated the procedure well, carefully escorted to recovery room in stable condition. No apparent complications. After meeting discharge criteria, the patient discharged home. By: [id number] Melquiades Barrios DO /nt
[2021-07-17 09:10] VITALS: BP 155/79
--- NOTE | 2021-07-17 09:12 | NUR ---
Pain Clinic Assessment: 1. History of Osteoarthritis: Right Upper Extremity Left Upper Extremity History of Rheumatoid Arthritis: GENERALIZED UNDER TREATMENT. 2. Height: 5 ft. 10 in. 177.8 cm. Weight: 295.0 lb. oz. 133.812 kg. Patient's BMI: 42.3 3. Vital Signs: BP: 155/79 Pulse: 74 Resp: 16 Temp: 02 Sat: 98 ECG Mon: 4. Pain Intensity: 9.5 5. Fall Risk: Dizziness: N Needs help standing or walking: N Fallen in the last 3 months: N Fall risk comments: 6. Patient on Blood Thinner: XARELTO 7. History of Hypertension: Y 8. Opioid Therapy greater than 6 weeks: Y Opiate Contract Signed: 9. Risk Assessment Tool Provided: LOW RISK-0 10. Functional Assessment Tool: 11. Recreational Drug Use: Never Drug Type: Tobacco Use: Never Smoker Tobacco Type: Amount or Packs/day: How Many Years: Alcohol Use: No Frequency: Quant:
== END | disposition home or self-care (01) ==
LOC: PAIN 08:20
PROVIDERS: ATTEND Anesthesiology Pain Medicine
DX: M51.16 Intervertebral disc disorders with radiculopathy, lumbar region (principal); M47.27 Other spondylosis with radiculopathy, lumbosacral region; G89.29 Other chronic pain; Z98.890 Other specified postprocedural states; Z79.899 Other long term (current) drug therapy; Z79.891 Long term (current) use of opiate analgesic; Z88.8 Allergy status to other drugs, medicaments and biological substances; Z88.0 Allergy status to penicillin

== ENCOUNTER → 2021-07-31 | Outpatient (CLI) | payer OTHER ==
[~2021-07-31] VITALS: Ht 177.8 cm; Wt 131.2 kg
[2021-07-31 09:11] VITALS: BP 120/68
--- NOTE | 2021-07-31 09:18 | NUR ---
Pain Clinic Assessment: 1. History of Osteoarthritis: Right Upper Extremity Left Upper Extremity History of Rheumatoid Arthritis: GENERALIZED UNDER TREATMENT. 2. Height: 5 ft. 10 in. 177.8 cm. Weight: 289.2 lb. oz. 131.181 kg. Patient's BMI: 41.5 3. Vital Signs: BP: 120/68 Pulse: 72 Resp: 18 Temp: 02 Sat: 97 ECG Mon: 4. Pain Intensity: 4 5. Fall Risk: Dizziness: N Needs help standing or walking: N Fallen in the last 3 months: N Fall risk comments: 6. Patient on Blood Thinner: XARELTO 7. History of Hypertension: Y 8. Opioid Therapy greater than 6 weeks: Y Opiate Contract Signed: 9. Risk Assessment Tool Provided: LOW RISK-0 10. Functional Assessment Tool: 11. Recreational Drug Use: Never Drug Type: Tobacco Use: Never Smoker Tobacco Type: Amount or Packs/day: How Many Years: Alcohol Use: No Frequency: Quant:
== END ==
LOC: PAIN 06:54
PROVIDERS: ATTEND Clinical Nurse Specialist Adult Health
DX: M51.16 Intervertebral disc disorders with radiculopathy, lumbar region (principal); M47.26 Other spondylosis with radiculopathy, lumbar region; G89.4 Chronic pain syndrome; Z79.899 Other long term (current) drug therapy; Z79.891 Long term (current) use of opiate analgesic

== ENCOUNTER → 2021-10-02 | Outpatient (CLI) | payer OTHER ==
[~2021-10-02] VITALS: Ht 175.3 cm; Wt 133.6 kg
[~2021-10-02] MED LIST changes: +PERCOCET 7.5-31 EAC1 PO
[2021-10-02 08:16] VITALS: BP 133/71
--- NOTE | 2021-10-02 11:23 | HPC ---
[facility] [place] [address] PAIN MANAGEMENT CONSULTATION Name: NGUYEN HUTCHINSON Room #: REG ELISA MajorVivek#: [id number] Admission: 10/02/21 Attend Phys: Melquiades Barrios DO Discharge: Date of : 60 Report #: [id number] THIS REPORT FOR: cc: Melquiades Coned,Melquiades Harrington DO ~ cc: TATIANA Conley James A. D'Angelo, DO DATE OF SERVICE: 10/02/2021 REFERRING PHYSICIAN: 10/02/2021 CHIEF COMPLAINT: Low back pain, bilateral lower extremity pain with paresthesias. HISTORY OF PRESENT ILLNESS: As you know, the patient is a very pleasant 61-year-old male returning to our clinic, requesting to begin the process of authorization to undergo lumbar epidural injection under fluoroscopic guidance. He reports previous epidural injection, gave 60% or greater improvement in overall pain lasting until just recently where his symptoms have reoccurred. The last injection was provided 07/17/2021. He believes he received at least 2 months' worth of improvement in symptoms. He states he was sleeping more efficiently. He was able to return to the majority of his activities of daily living at home after the injection and the pain was greatly reduced. He was even able to participate more fully at work and participate in some pleasurable activities such as going to sporting events and different events that he had been having to miss due to pain. He is very pleased with response to the treatment, returning today in followup visit to begin the process of authorization to undergo a lumbar epidural injection under fluoroscopic guidance. He is placing his current pain score at 8/10. He denies injury or trauma that may have led to symptom development. He has had no changes in his medication management that would preclude him from undergoing an epidural injection except he does need to come off his Xarelto for 3 days in preparation for that procedure. He returns to begin the process of authorization. Once he has the authorization, he will then discontinue his Xarelto in preparation for the epidural injection. He is also here today to discuss possible rotational medication management as his medications are not working sufficiently. ALLERGIES: NAPROXEN, PENICILLIN, ASPIRIN, GABAPENTIN, FLEXERIL, BENADRYL. CURRENT MEDICATIONS: Lyrica, hydrocodone, metformin, Trelegy Ellipta, albuterol, simvastatin, Januvia, Xarelto, Orencia, methotrexate, Xolair, ferrous sulfate, hydroxychloroquine, folic acid, amlodipine/benazepril. SOCIAL HISTORY: The patient denies tobacco, alcohol, IV or illicit drug use. He is working, not receiving workmen's compensation, unaccompanied at today's visit. [address] [address] PAIN MANAGEMENT CONSULTATION Name: NGUYEN HUTCHINSON Room #: REG [facility] ZacVivek#: [id number] Admission: 10/02/21 Attend Phys: Melquiades Barrios DO Discharge: Date of : 60 Report #: [id number] IMAGING: No new imaging available. PHYSICAL EXAMINATION: VITAL SIGNS: Blood pressure 133/71, pulse 75, respiratory rate 20, unlabored. The patient is 98% on room air. Height 5 feet 9 inches tall, weight 294.6 pounds, BMI calculated 43.5. GENERAL: A well-developed, well-nourished, well-hydrated class III morbidly obese 61-year-old male, appearing stated age, pain is rated today around 8/10. HEENT: Normocephalic, atraumatic. Pupils equal, round and responsive. He is deemed a good historian. He is wearing a mask in compliance with COVID-19 regulations and hospital policy. EXTREMITIES: Show no clubbing, no cyanosis, no edema. MUSCULOSKELETAL: Lower extremity strength is symmetrical today 5/5. He is presenting with an antalgic gait on the right. Seated straight leg raising is positive on the right. Supine straight leg raising positive on the right, but is limited somewhat by body habitus. Symptoms appear to occur at about a 60-degree angle. Ankle clonus negative. Babinski is negative. ASSESSMENT: 1. Symptomatic lumbar radiculopathy. 2. Displacement of lumbar intervertebral disk with radiculopathy. 3. Lumbosacral spondylosis with radiculopathy. 4. Lumbar degeneration. 5. Chronic intractable pain. PLAN: 1. The patient returns today in followup visit to begin the process of authorization to undergo lumbar epidural injection under fluoroscopic guidance. Most recent injection provided in July gave the patient about 2 months' worth of improvement of greater than 60%. He was able to return to the majority of his activities of daily living without significant pain interference. He noted improvement in sleep. Also noted improvement in his overall daily function. He was able to participate in daily chores at home and all work requirements and physical activities. He is very pleased with response to treatment, returning today to begin the process of authorization to undergo the next in the series. The patient was advised once the authorization has been completed, he will have to come off his Xarelto for 3 days in preparation for the procedure as done in the past. He has clearance to come off that medication once his authorization has been completed. 2. The patient and I did discuss the possibility of adjusting his oral medications. He states the hydrocodone does work, but he is losing some of its efficacy. I believe he has developed some tolerance to the medication. We will rotate to oxycodone/acetaminophen 7.5/325 to trial the medication and see if he will see benefit. I have advised the patient take this medication only when pain is intolerable, not to rely on the medication. I have sent 30 tablets of [address] [address] PAIN MANAGEMENT CONSULTATION Name: NGUYEN HUTCHINSON Room #: REG Preet Daley#: [id number] Admission: 10/02/21 Attend Phys: Melquiades Barrios DO Discharge: Date of : 60 Report #: [id number] the Percocet 7.5/325 to his local pharmacy. He can fill that medication today. We want to determine whether or not he can tolerate the medication and whether or not he sees benefit over the next couple of days to a week as we obtain the authorization for the injection. We will discuss the efficacy of followup visit. Prescription sent via e-scribe to local pharmacy. 3. We plan to see the patient back in followup visit for a lumbar epidural injection under fluoroscopic guidance. I am hopeful that the authorization will be done quickly and he can return to undergo the procedure rapidly. <ELECTRONICALLY SIGNED> By: Melquiades Barrios DO 10/02/21 [id number] Melquiades Barrios DO /ke
== END ==
LOC: PAIN 07:55
PROVIDERS: ATTEND Anesthesiology Pain Medicine
DX: M51.16 Intervertebral disc disorders with radiculopathy, lumbar region (principal); M47.26 Other spondylosis with radiculopathy, lumbar region; M47.27 Other spondylosis with radiculopathy, lumbosacral region; G89.29 Other chronic pain; M79.661 Pain in right lower leg; M79.662 Pain in left lower leg; Z88.0 Allergy status to penicillin; Z88.6 Allergy status to analgesic agent; Z88.8 Allergy status to other drugs, medicaments and biological substances; Z79.84 Long term (current) use of oral hypoglycemic drugs; Z79.899 Other long term (current) drug therapy

== ENCOUNTER → 2021-10-25 | Outpatient (CLI) | payer OTHER ==
[~2021-10-25] VITALS: Ht 175.3 cm; Wt 133.0 kg
--- NOTE | ~2021-10-25 | HPC ---
[facility] [place] [address] PAIN MANAGEMENT CONSULTATION Name: NGUYEN HUTCHINSON Room #: REG ELISA MajorVivek#: [id number] Admission: 10/25/21 Attend Phys: Melquiades Barrios DO Discharge: Date of : 60 Report #: [id number] THIS REPORT FOR: cc: Melquiades Conde James A. DO Johnson, James E. DO ~ cc: TATIANA Conley DATE OF SERVICE: 10/25/2021 REFERRING PHYSICIAN: Fatmata Scales NP CHIEF COMPLAINT: Low back pain, bilateral lower extremity pain. HISTORY OF PRESENT ILLNESS: As you know, the patient is a very pleasant 61-year-old male returning in followup visit to undergo lumbar epidural injection under fluoroscopic guidance. We have received all prior authorizations for the patient to undergo the procedure. He returns today with a pain level of 10/10. The patient states that even with medication management his pain is not very well controlled. He does do very well with epidural injections in combination with medications and we have received authorization for the patient to undergo that procedure today. Most recent injection gave excellent benefit in symptoms up to 70% improvement. Unfortunately, his symptoms reoccurred. As you are aware, patient suffers from chronic lumbar radiculopathy secondary to severe central canal stenosis. He returns today in followup visit requesting a lumbar epidural injection under fluoroscopic guidance to continue to receive analgesic benefit. He also wishes to adjust his medications back to his previous dose of hydrocodone as he does not feel the oxycodone is as beneficial and the side effects are significant. ALLERGIES: NAPROXEN, PENICILLIN, ASPIRIN, GABAPENTIN, FLEXERIL, BENADRYL. CURRENT MEDICATIONS: Lyrica, oxycodone, metformin, Trelegy Ellipta, albuterol, simvastatin, Januvia, Xarelto, Orencia, methotrexate, Xolair, ferrous sulfate, hydroxychloroquine, folic acid, amlodipine, benazepril. SOCIAL HISTORY: The patient denies tobacco, alcohol or illicit drug use. He is working, not receiving workmen's compensation, unaccompanied today. IMAGING: No new imaging available. PHYSICAL EXAMINATION: VITAL SIGNS: Blood pressure 139/78, pulse 75, respiratory rate 16 and unlabored. The patient 99% on room air. Height 5 feet 9 inches tall, weight 293.2 pounds, BMI calculated 43.3. GENERAL: Well-developed, well-nourished, well-hydrated class III, morbidly obese 61-year-old male, appearing stated age, pain is rated today 10/10. [place] [address] PAIN MANAGEMENT CONSULTATION Name: NGUYEN HUTCHINSON Room #: REG CLPreet Daley#: [id number] Admission: 10/25/21 Attend Phys: Melquiades Barrios DO Discharge: Date of : 60 Report #: [id number] HEENT: Normocephalic, atraumatic. Pupils equal, round and responsive. He is deemed a good historian. He is wearing a mask in compliance with COVID-19 regulations in hospital policies. EXTREMITIES: Show no clubbing, no cyanosis, no edema. MUSCULOSKELETAL: Lower extremity strength remains symmetrical 5/5 as presentation of the muscle bulk and tone is equal and symmetrical in lower extremities. Seated straight leg raising negative. Supine straight leg raising is positive on the right. Gait is antalgic favoring right lower extremity over left. Ankle clonus negative. Babinski remains negative. ASSESSMENT: 1. Symptomatic lumbar radiculopathy. 2. Displacement of lumbar intervertebral disk with radiculopathy. 3. Lumbosacral spondylosis with radiculopathy. 4. Lumbar degeneration. 5. Chronic intractable pain. PLAN: 1. The patient returns today in followup visit to undergo lumbar epidural injection under fluoroscopic guidance. The patient has reported good benefit with the previous epidural injections, most recent giving up to 70% improvement in overall pain. He returns requesting the next in the series. He has been advised risks and benefits of the procedure, states understood and wished to proceed. 2. The patient will discard his recent prescription of oxycodone. I advised the patient how to do so appropriately and legally. He will then rotate back to the hydrocodone, which he found more benefit and less side effects. He was given a prescription of hydrocodone 10/325 one tab p.o. q. 6 hours p.r.n. for pain, given the patient #120, which were released today, ____, 2 months' worth of medication. Prescriptions sent via e-scribe to local pharmacy for #120 tablets, no refills. 3. Plan to see the patient back in followup visit on an as needed basis for the next in the series of epidural injections. I am hopeful the patient will once again see good and prolonged benefit with the epidural injection in combination with medication management. 4. The patient will restart his Xarelto today. He will continue Xarelto as directed. DESCRIPTION OF PROCEDURE: L5-S1 right parasagittal epidural steroid injection under fluoroscopic guidance. After obtaining written consent, the patient was taken back to fluoroscopy suite, placed in prone position with pillow under abdomen to decrease lumbar lordosis. Skin overlying lumbosacral area then prepped and draped in aseptic fashion. The L5-S1 vertebral interspace identified by AP fluoroscopy. Skin and subcutaneous tissue overlying target site injection anesthetized with 3 mL of 1% [facility] [address] [place] [address] PAIN MANAGEMENT CONSULTATION Name: NGUYEN HUTCHINSON Room #: REG [facility]#: [id number] Admission: 10/25/21 Attend Phys: Melquiades Barrios DO Discharge: Date of : 60 Report #: [id number] lidocaine. A 20-gauge 4-1/2 inch Tuohy needle advanced under fluoroscopic guidance towards the epidural space using a right parasagittal approach. Epidural space identified using loss of resistance to air technique. After negative aspiration for heme or cerebrospinal fluid, 1 mL of Omnipaque injected. Lumbar epidurogram was confirmed using both AP and lateral fluoroscopy. After negative aspiration for heme or cerebrospinal fluid, 5 mL solution containing 2 mL 40 mg per mL 80 mg total triamcinolone along with 3 mL of lidocaine, 1% injected slowly. Needle retracted correction flushed with 1 mL of 1% lidocaine and then removed. Sterile bandage placed over injection site. No new motor deficits present in the lower extremities following procedure. The patient tolerated the procedure well, carefully escorted to recovery room in stable condition. No apparent complications. After meeting discharge criteria, the patient discharged home. By: [id number] Melquiades Barrios DO /ke
[2021-10-25 07:20] VITALS: BP 139/78
--- NOTE | 2021-10-25 07:27 | NUR ---
Pain Clinic Assessment: 1. History of Osteoarthritis: Right Upper Extremity Left Upper Extremity History of Rheumatoid Arthritis: GENERALIZED UNDER TREATMENT. 2. Height: 5 ft. 9 in. 175.3 cm. Weight: 293.2 lb. oz. 132.995 kg. Patient's BMI: 43.3 3. Vital Signs: BP: 139/78 Pulse: 75 Resp: 16 Temp: 02 Sat: 99 ECG Mon: 4. Pain Intensity: 10 5. Fall Risk: Dizziness: N Needs help standing or walking: N Fallen in the last 3 months: N Fall risk comments: 6. Patient on Blood Thinner: XARELTO 7. History of Hypertension: Y 8. Opioid Therapy greater than 6 weeks: Y Opiate Contract Signed: 9. Risk Assessment Tool Provided: LOW RISK-0 10. Functional Assessment Tool: 11. Recreational Drug Use: Never Drug Type: Tobacco Use: Never Smoker Tobacco Type: Amount or Packs/day: How Many Years: Alcohol Use: No Frequency: Quant:
== END | disposition home or self-care (01) ==
LOC: PAIN 06:53
PROVIDERS: ATTEND Anesthesiology Pain Medicine
DX: M51.16 Intervertebral disc disorders with radiculopathy, lumbar region (principal); M47.27 Other spondylosis with radiculopathy, lumbosacral region; G89.29 Other chronic pain; M19.90 Unspecified osteoarthritis, unspecified site; Z98.890 Other specified postprocedural states; Z79.899 Other long term (current) drug therapy; Z20.822 Contact with and (suspected) exposure to COVID-19; Z88.8 Allergy status to other drugs, medicaments and biological substances; Z88.0 Allergy status to penicillin